=== PATIENT | female | born 1970 | race Caucasian/White ===

== ENCOUNTER 2021-08-23 08:53 | Outpatient (REF) | payer MEDICARE, MEDICAID, SELFPAY ==
[2021-08-23 09:20] LABS: Binax Internal Control QC Valid; Binax Now Covid-19 Ag Negative (Negative)
== END 2021-08-23 08:54 | disposition home or self-care (01) ==
LOC: HO.HMGCLDS 08:53
PROVIDERS: Visit Provider Internal Medicine
DX: Z20.822 Contact with and (suspected) exposure to COVID-19 (principal); J06.9 Acute upper respiratory infection, unspecified
CPT/HCPCS: 36415

== ENCOUNTER 2021-12-15 09:24 | Outpatient (REF) | payer MEDICARE, MEDICAID, SELFPAY ==
[2021-12-15 11:13] LABS: MANUAL DIFF FLAG NO
[2021-12-15 11:28] LABS: Basophils Percent Auto 0.4 % (0-2); Eosinophils Absolute Auto 0.3 X10*3/uL (0.0-0.4); Eosinophils Percent Auto 3.5 % (0-4); Hematocrit 48.2 % (37.0-47.0); Hemoglobin 15.9 g/dl (12.0-16.0); Imm Gran Abs Auto 0.04 X10*3/uL (0.00-0.03); Imm Gran Pct Auto 0.4 % (0.0-0.4); Lymphocytes Percent Auto 21.3 % (20-40); Mean Corpuscular Hemoglobin 28.8 pg (27.0-33.0); Mean Corpuscular Volume 87.2 fL (80.0-98.0); Mean Platelet Volume 9.7 fL (9.4-12.3); Monocytes Percent Auto 10.6 % (2-11); Neutrophils Percent Auto 63.8 % (45-73); Platelet Count 375 X10*3/uL (160-400); Red Blood Count 5.53 X10*6/uL (4.20-5.50); Red Cell Distribution Width 13.2 % (11.0-16.0); White Blood Count 9.4 X10*3/uL (4.8-10.8)
[2021-12-15 11:37] LABS: Alanine Aminotransferase 13 U/L (0-31); Albumin Level 4.1 g/dL (3.5-5.0); Alkaline Phosphatase 62 U/L (39-117); Anion Gap 13 (12-20); Aspartate Amino Transferase 11 U/L (5-31); Bilirubin Total 0.5 mg/dL (0.0-1.0); Blood Urea Nitrogen 15 mg/dL (9-16); Calcium 9.6 mg/dL (8.4-10.2); Carbon Dioxide 25 mmol/L (22-29); Chloride 104 mmol/L (96-108); Cholesterol 193 mg/dL; Estimated Glomerular Filt Rate > 60; Glucose Fasting 102 mg/dL (60-99); HDL Cholesterol 42 mg/dL; LDL Cholesterol Calculated 127 mg/dl; Potassium 4.9 mmol/L (3.3-5.1); Sodium 137 mmol/L (135-145); Triglycerides 123 mg/dL
[2021-12-15 12:01] LABS: TSH reflex Free T4 0.86 uIU/mL (0.32-4.0); Vitamin D 25-OH Total 31.1 ng/mL (>30)
[2021-12-15 12:11] LABS: Folate 11.5 ng/mL (> or = 4.0); Vitamin B12 617 pg/mL (200-900)
== END 2021-12-15 09:25 | disposition home or self-care (01) ==
LOC: HO.HMGCLDS 09:24
PROVIDERS: PCP Internal Medicine; Visit Provider Internal Medicine
DX: Z00.01 Encounter for general adult medical examination with abnormal findings (principal); F31.9 Bipolar disorder, unspecified; N95.9 Unspecified menopausal and perimenopausal disorder
CPT/HCPCS: 36415; 80053; 80061; 82306; 82607; 82746; 84443; 85025

== ENCOUNTER 2022-08-13 10:07 | Outpatient (REF) | payer MEDICARE, MEDICAID, SELFPAY ==
--- NOTE | ~2022-08-13 | XR_ITS ---
EXAMINATION: XR CHEST CLINICAL INFORMATION: Cough COMPARISON: None TECHNIQUE: 2 views of the chest were obtained. FINDINGS: No focal consolidation, pulmonary edema, or pleural effusion. Stable cardiomediastinal silhouette. XR/XR chest 2V IMPRESSION: No acute cardiopulmonary findings.
[2022-08-13 14:20] LABS: Influenza A PCR NEGATIVE (Negative); Influenza B PCR NEGATIVE (Negative); Resp Syncy Virus RNA Qual PCR NEGATIVE (Negative); SARS COV2 PCR INHOUSE NEGATIVE (Negative)
== END 2022-08-13 10:08 | disposition home or self-care (01) ==
LOC: HO.HMGCX 10:07
PROVIDERS: PCP Internal Medicine; Visit Provider Physician Assistant Medical
DX: Z20.822 Contact with and (suspected) exposure to COVID-19 (principal); R05.9 Cough, unspecified
CPT/HCPCS: 0241U; 71046

== ENCOUNTER 2022-08-30 07:55 | Outpatient (REF) | payer MEDICARE, MEDICAID, SELFPAY ==
--- NOTE | 2022-08-30 10:57 | PFT_ITS ---
Forced vital capacity is 87%, FEV1 of 67%, FEV1/FVC ratio is 61. [id number] of 32% and MVV is 63%. Post bronchodilator therapy, there is no significant improvement. Total lung capacity 108%. Residual volume 132%. Diffusion capacity 64%. CONCLUSION: Moderately severe obstructive airway disorder. No response to bronchodilator therapy noted. Clinical correlation recommended. MD MARISSA Pedro/MODL / [id number]
== END 2022-08-30 07:56 | disposition home or self-care (01) ==
LOC: HO.RESP 07:55
PROVIDERS: PCP Internal Medicine; Visit Provider Internal Medicine
DX: F17.210 Nicotine dependence, cigarettes, uncomplicated (principal); R05.8 Other specified cough
CPT/HCPCS: 94060; 94727; 94729

== ENCOUNTER 2022-09-01 09:07 | Outpatient (AMB) | payer MEDICARE, MEDICAID, SELFPAY ==
--- NOTE | 2022-09-01 09:10 | MHC.PC.OV ---
Vital Signs 09/01/22 09:12 Height 5 ft 4 in Weight 175 lb BMI 30.0 BP 120/76 Blood Pressure Location Rt brachial Position Standing Pulse 100 Pulse Source Pulse Oximeter Pulse Oximetry (%) 96 Oxygen Delivery Method Room Air Intake Visit Reasons: lung tightness after PFT Intake Note: pt states she had PFT on Monday and was given a albuterol treatment and was told she had a negative effect. Allergies amoxicillin Allergy (Severe, Verified 12/19/22 08:57) hives No Known Allergies Allergy (Verified 12/19/22 08:57) Medication List - Last Reconciled 09/01/22 by Jennyfer Jurado MD albuterol sulfate 90 mcg/actuation 1 inh inhalation QID PRN aripiprazole (Abilify) 15 mg PO DAILY hydroxyzine pamoate (Vistaril) 25 mg PO BID PRN lamotrigine 75 mg PO DAILY lorazepam 1 mg PO DAILY oxcarbazepine (Trileptal) 300 mg PO ONCE trazodone 50 mg PO DAILY PRN Tobacco use date assessed: 09/01/22 HPI lung tightness after PFT HPI Details 51-year-old lady with heavy cigarette use, here today complaining of tightness, and difficulty breathing, unable to get a good breath, with wheezing, which started after she had her pulmonary function test 2 days ago. She states that she had a hard time breathing after she received nebulizer treatment during her test. Has been using her Ventolin inhaler which he states has not been helping. . She continues to smoke at least 20 cigarettes a day, but is motivated to quit. Has tried taking Chantix but unable to tolerate it due to severe vivid dreams while taking it, has tried nicotine patches in the past but was still smoking while using it. She does have bipolar disorder, currently being followed by Psychiatry at [facility] in [place]. [facility] Medical History (Updated 12/19/22 @ 09:30 by Jennyfer Jurado MD) Chronic neck pain with normal neurological examination Chronic headaches Chronic right shoulder pain COVID-19 vaccine dose declined Pneumococcal vaccination declined Refused influenza vaccine Pain around toenail Mild intermittent asthma Cigarette smoker motivated to quit Heavy cigarette smoker (20-39 per day) Bipolar disorder Family History Brother Substance use disorder Brother Substance use disorder Social History Housing: Other Housing Other:: mobile home Alcohol intake: never Patient Tobacco Use Status: Current everyday Tobacco user Cigarette Packs Per Day: 1 Cigarettes Per Day: 20 e-Cigarette/Vaping Use: Never Used service: No Current occupational status: disabled Cognitive needs: No Hearing needs: No Vision needs: Yes Questionnaire PHQ-9 Over the last 2 weeks, how often have you been bothered by any of the following problems? 1. Little interest or pleasure in doing things: more than half the days 2. Feeling down, depressed, or hopeless: more than half the days 3. Trouble falling or staying asleep, or sleeping too much: several days 4. Feeling tired or having little energy: nearly every day 5. Poor appetite or overeating: more than half the days 6. Feeling bad about yourself - or that you are a failure or have let yourself or your family down: more than half the days 7. Trouble concentrating on things, such as reading the newspaper or watching television: nearly every day 8. Moving or speaking so slowly that other people could have noticed. Or the opposite - being so fidgety or restless that you have been moving around a lot more than usual: more than half the days 9. Thoughts that you would be better off or of hurting yourself in some way: several days Total score: 18 Depression Screening Interpretation: Positive (sees Dr Christopher Brewer in [place]) Depression Screening Follow-up: Existing condition and In treatment Source: Developed by Drs. Aj Bruce, Lina Andre, Jethro Chaidez and colleagues, with an educational samia from [employer]. Thrive Questionnaire Date Thrive assessed: 09/01/22 I am a: Patient What is your living situation today?: I have a steady place to live Within the past 12 months, did the food you bought not last and you didn't have the money to get more?: Never true Within the past 12 months, did you worry whether your food would run out before you got money to buy more?: Never true Do you have trouble paying for medicines?: No Do you have trouble getting transportation to medical appointments?: No Do you have trouble paying your heating and electricity bill?: No Do you have trouble taking care of your child, family member or friend?: No Do you have trouble with day-to-day activities such as bathing, preparing meals, shopping, managing finances, etc.?: No Are you currently unemployed and looking for a job?: No Are you interested in more education?: No AUDIT C Alcohol Use Questionnaire (AUDIT-C) 1. How often do you have a drink containing alcohol?: Never 3. How often do you have six or more drinks on one occasion?: Never Total Score: 0 THOR-7 AMB Questionnaire THOR-7 Date THOR - 7 assessed: 09/01/22 Feeling nervous, anxious, or on edge: 3 = Nearly every day Not being able to stop or control worryin = Nearly every day Worrying too much about different things: 3 = Nearly every day Trouble relaxin = Nearly every day Being so restless that it is hard to sit still: 2 = More than half the days Becoming easily annoyed or irritable: 2 = More than half the days Feeling afraid as if something awful might happen: 2 = More than half the days Total THOR-7 score (0-4 normal; 5-9 mild; 10-14 moderate; 15-21 severe): 18 Source: Developed by Drs. Aj Bruce, Lina Andre, Jethro Chaidez and colleagues, with an educational samia from [employer]. Review of Systems Const Reports as per HPI, Denies fatigue, Denies fever(s) and Denies headache(s) ENT Denies headache(s), Denies nasal congestion, Denies nasal discharge, Denies nose pain, Denies post nasal drip and Denies sinus pain Card Denies acrocyanosis, Denies chest pain, Denies syncope, Denies rapid heart rate, Denies irregular heart rhythm, Denies palpitations and Reports dyspnea Resp Denies chest congestion, Reports cough (Dry cough), Denies pain on inspiration, Reports dyspnea and Reports wheezing GI Denies abdominal pain, Denies change in bowel habits and Denies heartburn Musc Reports no additional complaints Neuro Denies syncope and Denies headache(s) Endo Denies fatigue and Denies palpitations Aller/Immun Reports wheezing Physical exam (Primary Care) Vital Signs: Last Vital Signs Pulse 100 01/19/23 09:12 BP 120/76 09/01/22 09:12 Pulse Ox 96 09/01/22 09:12 Oxygen Delivery Method Room Air 09/01/22 09:12 BMI result Body Mass Index 30.0 Tobacco/Smoking Status: Tobacco use Status Tobacco use date assessed 09/01/22 09/01/22 09:17 Patient Tobacco Use Status Current everyday Tobacco 09/01/22 09:17 e-Cigarette/Vaping Use Never Used 09/01/22 09:17 PHQ-9: PHQ-9 Score PHQ-9: Total score 18 09/01/22 09:56 Depression Screening Interpretation: Positive (sees Dr Christopher Brewer in [place]) Depression Screening Follow-up: Existing condition and In treatment Thrive Assessment: Date of Thrive Assessment Date Thrive assessed 09/01/22 09/01/22 09:18 Const General: comfortable, no acute distress and alert HENMT Ears: external ears normal, TM's normal bilaterally and EAC's normal General nose exam: Normal external nose present and No nasal discharge present Mouth: oropharynx normal and moist mucous membranes Neck Neck: Yes full ROM, Yes no lymphadenopathy and Yes supple Resp Other: Diffuse wheezing heard, with tight breath sounds, no rales Effort & Inspection: normal respiratory effort and able to speak in complete sentences Cardio Rate: regular rate Rhythm: regular rhythm Heart sounds: S1 normal heart sound present and S2 normal heart sound present Assessment and Plan Assessment & Plan (1) Bronchitis, acute, with bronchospasm: Code(s): J20.9 - Acute bronchitis, unspecified Plan: Prescription sent for prednisone, tapering dose, to take as directed. Strongly encouraged to quit smoking, not ready to quit at present time per patient (2) Bipolar disorder: Code(s): F31.9 - Bipolar disorder, unspecified Plan: Followed by psychiatry Medications: New prednisone Take 40 mg once a day with food or milk on days 1 and 2, 30 mg p.o. q.a.m. on days 3 and 4, 20 mg p.o. q.a.m. on days 5 and 6, and 10 mg p.o. q.a.m. on days 7 and 8 orally as directed 20 tabs 0RF Coding Level of Care Code Est Pt Level 3 (35307) Diagnoses Bronchitis, acute, with bronchospasm J20.9 Bipolar disorder F31.9
[2022-09-01 09:12] VITALS: BP 120/76; PULSE 100; O2SAT 96
== END 2022-09-01 16:51 | disposition home or self-care (01) ==
LOC: HO.HMGC 09:07
PROVIDERS: PCP Internal Medicine; Visit Provider Internal Medicine
DX: J20.9 Acute bronchitis, unspecified (principal); F31.9 Bipolar disorder, unspecified
CPT/HCPCS: 99213

== ENCOUNTER 2022-10-21 13:46 | Outpatient (REF) | payer MEDICARE, MEDICAID, SELFPAY ==
--- NOTE | 2022-10-21 17:04 | PFT_ITS ---
This is a methacholine challenge. INDICATION: Evaluation of hyperreactive airways and a diagnosis of asthma. FINDINGS: After the patient received 1 mg of methacholine, her FEV1 dropped by 26%. The patient then received albuterol via nebulizer, improving her FEV1 back to baseline. IMPRESSION: This is a positive methacholine challenge consistent with a diagnosis of hyperreactive airways and asthma is very likely. Clinical correlation warranted. MD MARY Guadarrama/SILVA / [id number]
== END 2022-10-21 13:47 | disposition home or self-care (01) ==
LOC: HO.RESP 13:46
PROVIDERS: PCP Internal Medicine; Visit Provider Internal Medicine
DX: R05.8 Other specified cough (principal); F17.210 Nicotine dependence, cigarettes, uncomplicated
CPT/HCPCS: 94070; J7674

== ENCOUNTER 2022-12-20 07:42 | Outpatient (REF) | payer MEDICARE, MEDICAID, SELFPAY ==
--- NOTE | ~2022-12-20 | XR_ITS ---
EXAMINATION: XR CERVICAL SPINE CLINICAL INFORMATION: Neck pain COMPARISON: Cervical spine CT from 2013 TECHNIQUE: 5 views of the cervical spine FINDINGS: Bone alignment is normal. No fracture or dislocation. Degenerative spondylosis from C2-C3 to C5-C6. Normal disc spaces. Right-sided neuroforaminal narrowing from bony osteophyte from C2-C3 to C4-C5. Evaluation of left-sided neural foraminal limited due to patient positioning. Prevertebral soft tissues are normal. XR/XR cervical spine 5V IMPRESSION: Degenerative changes.
--- NOTE | ~2022-12-20 | XR_ITS ---
EXAMINATION: XR SHOULDER, RIGHT CLINICAL INFORMATION: Pain COMPARISON: None available. TECHNIQUE: AP external rotation, Grashey, scapular Y, and axillary views of the right shoulder. FINDINGS: Bone alignment is normal. No fracture or dislocation. Normal glenohumeral joint. Mild arthritis at the acromioclavicular joint. Soft tissues are normal. XR/XR shoulder RT min 2V IMPRESSION: Mild arthritis at the acromioclavicular joint.
[2022-12-20 11:36] LABS: Basophils Absolute Auto 0.1 X10*3/uL (0.0-0.2); Basophils Percent Auto 0.5 % (0-2); Eosinophils Absolute Auto 0.4 X10*3/uL (0.0-0.4); Eosinophils Percent Auto 3.7 % (0-4); Hematocrit 47.9 % (37.0-47.0); Hemoglobin 15.7 g/dl (12.0-16.0); Imm Gran Abs Auto 0.03 X10*3/uL (0.00-0.03); Imm Gran Pct Auto 0.3 % (0.0-0.4); Lymphocytes Percent Auto 20.3 % (20-40); MANUAL DIFF FLAG SCAN; Mean Corpuscular HGB Conc 32.8 g/dl (31.0-35.0); Mean Corpuscular Hemoglobin 28.5 pg (27.0-33.0); Mean Corpuscular Volume 87.1 fL (80.0-98.0); Monocytes Absolute Auto 0.9 X10*3/uL (0.1-1.2); Monocytes Percent Auto 8.8 % (2-11); Neutrophils Absolute Auto 6.6 x10*3/uL (2.0-8.3); Neutrophils Percent Auto 66.4 % (45-73); PLT CLUMP 1; Red Cell Distribution Width 13.2 % (11.0-16.0); SCAN SMEAR FLAG 1
[2022-12-20 12:28] LABS: SLIDE REVIEW VERIFIED
[2022-12-20 13:00] LABS: Vitamin D 25-OH Total 33.4 ng/mL (>30)
[2022-12-20 13:01] LABS: Alanine Aminotransferase 21 U/L (0-31); Anion Gap 13 (12-20); Aspartate Amino Transferase 15 U/L (5-31); Blood Urea Nitrogen 15 mg/dL (9-16); Calcium 9.4 mg/dL (8.4-10.2); Carbon Dioxide 24 mmol/L (22-29); Chloride 109 mmol/L (96-108); Cholesterol 209 mg/dL; Estimated Glomerular Filt Rate > 60; Glucose Fasting 103 mg/dL (60-99); HDL Cholesterol 46 mg/dL; LDL Cholesterol Calculated 134 mg/dl; Potassium 4.9 mmol/L (3.3-5.1); Sodium 141 mmol/L (135-145); Triglycerides 145 mg/dL
== END 2022-12-20 07:43 | disposition home or self-care (01) ==
LOC: HO.HMGCX 07:42
PROVIDERS: PCP Internal Medicine; Visit Provider Internal Medicine
DX: Z00.01 Encounter for general adult medical examination with abnormal findings (principal); R51.9 Headache, unspecified; M54.2 Cervicalgia; M25.511 Pain in right shoulder; F31.9 Bipolar disorder, unspecified; G89.29 Other chronic pain; J45.20 Mild intermittent asthma, uncomplicated
CPT/HCPCS: 36415; 72050; 73030; 80048; 80061; 82306; 84450; 84460; 85025

== ENCOUNTER 2023-01-25 13:01 | Outpatient (REF) | payer MEDICARE, MEDICAID, SELFPAY ==
--- NOTE | ~2023-01-25 | MM_ITS ---
EXAMINATION: MM SCREENING DIGITAL BREAST TOMOSYNTHESIS, BILATERAL CLINICAL INFORMATION: Screening. Asymptomatic. Age 52. No prior mammography. No known family history breast cancer. The lifetime risk of breast cancer based on the Tyrer-Cuzick Model is 11%. COMPARISON: None (current study represents initial baseline exam). TECHNIQUE: Digital breast tomosynthesis is performed in both the craniocaudal and mediolateral oblique views along with computer-aided detection (CAD). Synthesized 2D images are generated from the tomosynthesis. FINDINGS: There are scattered areas of fibroglandular density (ACR BI-RADS breast composition Category b). There are no significant masses, abnormal calcifications, or other abnormalities. The axilla and skin contours are unremarkable. MM/MM tomosynthesis screening BI IMPRESSION: No mammographic evidence of malignancy. ASSESSMENT: BI-RADS 1: Negative RECOMMENDATION: Routine annual mammography screening. This patient's information was entered into a reminder system with a target due date for their next mammogram.
== END 2023-01-25 13:02 | disposition home or self-care (01) ==
LOC: HO.MAMMO 13:01
PROVIDERS: PCP Internal Medicine; Visit Provider Internal Medicine
DX: Z12.31 Encounter for screening mammogram for malignant neoplasm of breast (principal)
CPT/HCPCS: 77063; 77067

== ENCOUNTER 2023-06-28 14:13 | Outpatient (AMB) | payer MEDICARE, MEDICAID, SELFPAY ==
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
[2023-06-28 14:28] VITALS: BP 126/78; PULSE 91; RESP 16; O2SAT 98; BMI 31.3
== END 2023-06-28 15:12 | disposition home or self-care (01) ==
PROVIDERS: Visit Provider Psychiatry & Neurology Neurology
DX: R51.9 Headache, unspecified (principal); G89.29 Other chronic pain; R06.83 Snoring; G47.10 Hypersomnia, unspecified
CPT/HCPCS: 99204

== ENCOUNTER → 2023-06-28 14:13 | Outpatient (BNVA) | payer MEDICARE, MEDICAID, SELFPAY | PROVIDERS: Visit Provider Psychiatry & Neurology Neurology | DX: R51.9 Headache, unspecified (principal); G47.10 Hypersomnia, unspecified; R06.83 Snoring | CPT/HCPCS: 99202 ==

== ENCOUNTER 2023-07-20 11:48 | Outpatient (AMB) | payer MEDICARE, MEDICAID, SELFPAY ==
[2023-07-20 11:49] VITALS: BP 120/70; PULSE 83; TEMP 36.4; O2SAT 97; BMI 31.1
--- NOTE | 2023-07-20 11:49 | AM.OFFWIN_ITS ---
Intake Vital Signs 07/20/23 11:49 Height 5 ft 4 in Weight 181 lb BMI 31.1 BP 120/70 Blood Pressure Location Rt brachial Position Sitting Pulse 83 Pulse Source Pulse Oximeter Temp 97.6 F Temp Source Temporal Artery Scan Pulse Oximetry (%) 97 Oxygen Delivery Method Room Air Intake Visit Reasons: EP, body aches, cough ([phone]) Intake Note: pt is here today for body aches, cough started last Patient Tobacco Use Status: Current everyday Tobacco user Allergies amoxicillin Allergy (Severe, Verified 07/20/23 12:03) hives No Known Allergies Allergy (Verified 07/20/23 12:03) Do you need a note to return to daycare/school/sports/work: No HPI HPI Comments History of Present Illness Details This is a 52-year-old female with a past medical history of asthma and bipolar disorder as well as tobacco use daily presenting for evaluation of body aches patient, cough and subjective fevers that she has had over the past 1 week. Patient has been using her albuterol inhaler with increased frequency. Patient denies having any sick contacts and has not tested herself for COVID-19 at home. Patient has not received her influenza immunization. [facility] Medical History Snoring Hypersomnia Chronic neck pain with normal neurological examination Chronic headaches Chronic right shoulder pain COVID-19 vaccine dose declined Pneumococcal vaccination declined Refused influenza vaccine Pain around toenail Mild intermittent asthma Cigarette smoker motivated to quit Heavy cigarette smoker (20-39 per day) Bipolar disorder Surgical History Previous section Family History Brother Substance use disorder Brother Substance use disorder Father No problems noted. Mother HTN (hypertension) Social History Household Members: Spouse Housing: Other Housing Other:: mobile home Alcohol intake: never Patient Tobacco Use Status: Current everyday Tobacco user Cigarette Packs Per Day: 1 Cigarettes Per Day: 20 e-Cigarette/Vaping Use: Never Used service: No Current occupational status: disabled Cognitive needs: No Hearing needs: No Vision needs: Yes Review of Systems Const Denies chills, Reports fatigue, Reports fever(s) (Subjective) and Denies night sweats Eyes Reports as per HPI ENT Reports no additional complaints, Reports nasal congestion, Denies sinus pain and Reports sinus pressure Card Reports no additional complaints Skin/Breast Reports system reviewed and no additional complaints, except as documented Endo Reports fatigue Physical Exam Vital Signs: Last Vital Signs Temp 97.6 F 07/20/23 11:49 Pulse 83 07/20/23 11:49 BP 120/70 07/20/23 11:49 Pulse Ox 97 07/20/23 11:49 Oxygen Delivery Method Room Air 07/20/23 11:49 BMI result Body Mass Index 31.1 Pt is afebrile. Const General: cooperative, healthy appearing, comfortable and no acute distress Nutritional Appearance: average body habitus Orientation/consciousness: patient oriented x3 Limitations: no limitations HEENT Head: Yes normal to inspection and Yes normocephalic Ears: hearing grossly normal bilaterally, external ears normal, TM's normal bilaterally and EAC's normal General nose exam: Normal external nose present Face and sinus: Yes normal facial exam and No sinus tenderness Mouth: Normal oral and palatal mucosa present and moist mucous membranes Teeth and gingiva: dentition normal Throat: Yes posterior oropharynx normal Resp Effort & Inspection: normal respiratory effort, able to speak in complete sentences, audible wheezes, Actively coughing, respiratory effort not decreased, no nasal flaring, no respiratory distress and no tripod positioning Auscultation: wheezes lower bilaterally Cardio Rate: regular rate Rhythm: regular rhythm Skin General skin exam: no rashes or lesions noted Neuro General: patient oriented x3 Psych Appearance: grossly normal Mental Status: mental status grossly normal Insight: Good insight present (Psych) Judgement: Good judgement present (Psych) Results AMB Rapid Strep AMB Rapid Strep Negative Last Edit by Jessica Potter CMA on 07/20/23 12:11 Results Reviewed Results Reviewed: Laboratory Last Values Strep Scn [facility] Negative 07/20/23 12:10 Negative strep reviewed with patient. Assessment & Plan Assessment & Plan (1) Asthma: Code(s): J45.909 - Unspecified asthma, uncomplicated Plan: SARS panel pending; patient discharged with a prednisone burst. Orders: Orders AMB Rapid Strep Screen 07/20/23 Z13.9 - Encounter for screening, unspecified Yessy Ash MESHA SARS-CoV2/FLU/RSV 07/20/23 J45.909 - Unspecified asthma, uncomplicated Nohemi Marcano PA-C Medications: New prednisone 40 mg (2 x 20 mg) PO DAILY 10 tabs 0RF Nohemi Marcano PA-C Coding Level of Care Code Est Pt Level 3 (20566) Diagnoses Asthma J45.909 Time Spent (min) 25
== END 2023-07-20 13:59 | disposition home or self-care (01) ==
PROVIDERS: PCP Internal Medicine; Visit Provider Physician Assistant
DX: J45.909 Unspecified asthma, uncomplicated (principal)
CPT/HCPCS: 87880; 99213

== ENCOUNTER 2023-07-20 16:15 | Outpatient (REF) | payer MEDICARE, MEDICAID, SELFPAY ==
[2023-07-20 17:28] LABS: Influenza A PCR NEGATIVE (Negative); Influenza B PCR NEGATIVE (Negative); Resp Syncy Virus RNA Qual PCR NEGATIVE (Negative); SARS COV2 PCR INHOUSE POSITIVE (Negative)
== END 2023-07-20 16:16 | disposition home or self-care (01) ==
LOC: HO.LNP 16:15
PROVIDERS: Visit Provider Physician Assistant
DX: J45.909 Unspecified asthma, uncomplicated (principal); Z20.822 Contact with and (suspected) exposure to COVID-19
CPT/HCPCS: 0241U

== ENCOUNTER → 2023-08-15 09:07 | Outpatient (REF) | payer MEDICARE, MEDICAID, SELFPAY | LOC: HO.SL 09:07 | PROVIDERS: PCP Internal Medicine; Visit Provider Psychiatry & Neurology Neurology | DX: G47.10 Hypersomnia, unspecified (principal); G89.29 Other chronic pain; R51.9 Headache, unspecified; R06.83 Snoring | CPT/HCPCS: 95806 ==

== ENCOUNTER → 2023-08-15 09:21 | Outpatient (BNV) | payer MEDICARE, MEDICAID, SELFPAY | PROVIDERS: PCP Internal Medicine; Visit Provider Psychiatry & Neurology Neurology | DX: R06.83 Snoring (principal); G47.10 Hypersomnia, unspecified | CPT/HCPCS: 95806 ==

== ENCOUNTER 2023-09-18 10:29 | Outpatient (AMB) | payer MEDICARE, MEDICAID, SELFPAY ==
--- NOTE | 2023-09-18 10:50 | MHC.PC.OV ---
Vital Signs 09/18/23 10:51 Height 5 ft 4 in Weight 186 lb BMI 31.9 BP 126/80 Blood Pressure Location Lt brachial Position Sitting Pulse 94 Pulse Source Pulse Oximeter Pulse Oximetry (%) 94 Oxygen Delivery Method Room Air Intake Visit Reasons: cough Intake Note: Pt is here today c/o chest discomfort and SOB Allergies amoxicillin Allergy (Severe, Verified 09/18/23 11:11) hives No Known Allergies Allergy (Verified 09/18/23 11:11) Medication List - Last Reconciled 09/18/23 by Jennyfer Jurado MD albuterol sulfate 90 mcg/actuation 1 inh inhalation QID PRN aripiprazole (Abilify) 15 mg PO DAILY Dulera 200-5 mcg/actuation (mometasone-formoterol) 2 puffs inhalation Q12H NS inhalational spacing device (BreatheRite MDI Spacer) As directed lamotrigine 50 mg PO DAILY lorazepam 0.5 mg PO BID oxcarbazepine (Trileptal) 300 mg PO ONCE Tobacco use date assessed: 09/18/23 Dental Screening Dental Screen Date: 09/18/23 Did you have a dental visit in the last 12 months?: Yes Did you have a dental problem in the last 6 months where you did not have access to dental care?: Yes Was dental information given to patient?: Patient has dentist HPI HPI Comments History of Present Illness Details 52-year-old lady with mild intermittent asthma, here today complaining of intermittent episodes of wheezing and shortness of breath especially on exertion. This has been present for the last several days. No accompanying fever or chills or chest pain reported. She has been using her Dulera and albuterol rescue inhaler which has not been helping much. She also complains of intermittent episodes of epigastric fullness, where sensation of food not completely going down after eating and occasional epigastric pain usually related to food intake. Denies any blood in stool, no bloating, no dysphagia or vomiting reported. [facility] Medical History (Updated 09/18/23 @ 11:25 by Jennyfer Jurado MD) Asthma with acute exacerbation Epigastric fullness Epigastric pain Snoring Hypersomnia Chronic neck pain with normal neurological examination Chronic headaches Chronic right shoulder pain COVID-19 vaccine dose declined Pneumococcal vaccination declined Refused influenza vaccine Pain around toenail Mild intermittent asthma Cigarette smoker motivated to quit Heavy cigarette smoker (20-39 per day) Bipolar disorder Surgical History Previous section Family History Brother Substance use disorder Brother Substance use disorder Father No problems noted. Mother HTN (hypertension) Social History Household Members: Spouse Housing: Other Housing Other:: mobile home Alcohol intake: never Patient Tobacco Use Status: Current everyday Tobacco user Cigarette Packs Per Day: 1 Cigarettes Per Day: 20 e-Cigarette/Vaping Use: Never Used service: No Current occupational status: disabled Cognitive needs: No Hearing needs: No Vision needs: Yes Questionnaire PHQ-9 Over the last 2 weeks, how often have you been bothered by any of the following problems? 1. Little interest or pleasure in doing things: not at all 2. Feeling down, depressed, or hopeless: not at all 3. Trouble falling or staying asleep, or sleeping too much: not at all 4. Feeling tired or having little energy: not at all 5. Poor appetite or overeating: not at all 6. Feeling bad about yourself - or that you are a failure or have let yourself or your family down: not at all 7. Trouble concentrating on things, such as reading the newspaper or watching television: not at all 8. Moving or speaking so slowly that other people could have noticed. Or the opposite - being so fidgety or restless that you have been moving around a lot more than usual: not at all 9. Thoughts that you would be better off or of hurting yourself in some way: not at all Total score: 0 Depression Screening Interpretation: Negative Depression Screening Done: Yes 66670 - PHQ-9 Billing: Yes Source: Developed by Drs. Aj Bruce, Lina Andre, Jethro Chaidez and colleagues, with an educational samia from [employer]. Thrive Questionnaire Date Thrive assessed: 09/18/23 I am a: Patient What is your living situation today?: I have a steady place to live Within the past 12 months, did the food you bought not last and you didn't have the money to get more?: Never true Within the past 12 months, did you worry whether your food would run out before you got money to buy more?: Never true Do you have trouble paying for medicines?: No Do you have trouble getting transportation to medical appointments?: No Do you have trouble paying your heating and electricity bill?: No Do you have trouble taking care of your child, family member or friend?: No Do you have trouble with day-to-day activities such as bathing, preparing meals, shopping, managing finances, etc.?: No Are you currently unemployed and looking for a job?: No Are you interested in more education?: Yes THRIVE Score: 0 AUDIT C Alcohol Use Questionnaire (AUDIT-C) 1. How often do you have a drink containing alcohol?: Never Total Score: 0 THOR-7 AMB Questionnaire THOR-7 Date THOR - 7 assessed: 09/18/23 Feeling nervous, anxious, or on edge: 0 = Not at all Not being able to stop or control worryin = Not at all Worrying too much about different things: 0 = Not at all Trouble relaxin = Not at all Being so restless that it is hard to sit still: 0 = Not at all Becoming easily annoyed or irritable: 0 = Not at all Feeling afraid as if something awful might happen: 0 = Not at all Total THOR-7 score (0-4 normal; 5-9 mild; 10-14 moderate; 15-21 severe): 0 Source: Developed by Drs. Aj Bruce, Lina Andre, Jethro Chaidez and colleagues, with an educational samia from [employer]. THOR-7 Assessment Billing THOR-7 Assessment Tool: THOR-7 Assessment 28249 ACT Questionnaire In the past 4 weeks, how much of the time did your asthma keep you from getting as much done at work, school or at home?: Some of the time During the past 4 weeks, how often have you had shortness of breath?: 3-6 times a week During the past 4 weeks, how often did your asthma symptoms wake you up at night or earlier than usual in the morning?: Not at all During the past 4 weeks, how often have you had to use your rescue inhaler or nebulizer medication?: 2-3 times a week How would you rate your asthma control during the past 4 weeks?: Somewhat controlled Score: 17 Review of Systems Const Denies chills, Reports fatigue, Denies fever(s) and Denies poor appetite ENT Denies ear discharge, Denies hoarseness, Denies nasal congestion and Denies nasal discharge Card Reports no additional complaints Resp Reports as per HPI and Reports no additional complaints GI Reports no additional complaints, Denies melena, Denies hematochezia and Denies change in bowel habits Musc Reports no additional complaints Endo Reports fatigue Physical exam (Primary Care) Vital Signs: Last Vital Signs Pulse 94 09/18/23 10:51 BP 126/80 09/18/23 10:51 Pulse Ox 94 09/18/23 10:51 Oxygen Delivery Method Room Air 09/18/23 10:51 BMI result Body Mass Index 31.9 Tobacco/Smoking Status: Tobacco use Status Tobacco use date assessed 09/18/23 09/18/23 10:58 Patient Tobacco Use Status Current everyday Tobacco 09/18/23 10:51 e-Cigarette/Vaping Use Never Used 09/18/23 10:51 PHQ-9: PHQ-9 Score PHQ-9: Total score 0 09/18/23 11:16 Depression Screening Interpretation: Negative Thrive Assessment: Date of Thrive Assessment Date Thrive assessed 09/18/23 09/18/23 11:13 Const Other: Alert oriented x3, no acute distress noted HENMT Ears: external ears normal General nose exam: Normal external nose present and No nasal discharge present Face and sinus: Yes sinuses nontender and Yes face symmetric Mouth: Normal oral and palatal mucosa present, oropharynx normal and moist mucous membranes Neck Other: Supple with no lymphadenopathy palpated, thyroid gland nonpalpable Resp Auscultation: wheezes scattered wheezes and throughout Cardio Other: S1-S2 present regular rate and rhythm GI Palpation (GI): Soft to palpation, nontender, no guarding and no masses Assessment and Plan Assessment & Plan (1) Epigastric fullness: Code(s): R19.06 - Epigastric swelling, mass or lump Plan: Order an upper GI series (2) Epigastric pain: Code(s): R10.13 - Epigastric pain Plan: Upper GI series ordered, empirically started on pantoprazole 40 mg per capsule to take once a day in a.m. an hour before breakfast, avoidance of triggers for heartburn which includes acidic foods, fried , grilled foods (3) Asthma with acute exacerbation: Code(s): J45.901 - Unspecified asthma with (acute) exacerbation Qualifiers: Asthma persistence: intermittent Asthma severity: mild Qualified Code(s): J45.21 - Mild intermittent asthma with (acute) exacerbation Plan: Prescription for tapering dose of prednisone given, with instructions given to patient on how to take medication. Advised to take it always in the morning with food or milk. Once finished taking the prescription, resume use of Dulera. Return to clinic if no improvement of symptoms Orders: Orders FL upper GI series 09/18/23 R10.13 - Epigastric pain, R19.06 - Epigastric swelling, mass or lump Medications: New pantoprazole 40 mg PO DAILY 30 tabs 1RF prednisone see taper instructions, take 40 mg or 4 tablets on days 1 and 2; 30 mg or 3 tablets on day 3 and 4; take 20 mg or 2 tablets on days 5 and 6; , and 10 mg or 1 tablet on days 7 and 8 . Take this always with a full meal in a.m. 10 mg PO DIRECTED 20 tabs 0RF Coding Level of Care Code Est Pt Level 3 (30505) Diagnoses Epigastric fullness R19.06 Epigastric pain R10.13 Mild intermittent asthma with acute exacerbation J45.21 Asthma persistence: intermittent Asthma severity: mild Additional Codes THOR-7 Assessment Billing - THOR-7 Assessment Tool: THOR-7 Assessment 74952 ([id number])
[2023-09-18 10:51] VITALS: BP 126/80; PULSE 94; O2SAT 94; BMI 31.9
== END 2023-09-18 11:22 | disposition home or self-care (01) ==
PROVIDERS: PCP Internal Medicine; Visit Provider Internal Medicine
DX: R19.06 Epigastric swelling, mass or lump (principal); R10.13 Epigastric pain; J45.21 Mild intermittent asthma with (acute) exacerbation
CPT/HCPCS: 99213

== ENCOUNTER 2023-11-06 09:27 | Outpatient (AMB) | payer MEDICARE, MEDICAID, SELFPAY ==
--- NOTE | 2023-11-06 09:33 | A.OFFPC_ITS ---
<Statement entered by Jennyfer Jurado MD - 01/14/25 10:37> This note has been administratively?closed. Vital Signs 11/06/23 09:54 Height 5 ft 4 in Weight 184 lb BMI 31.6 BP 124/94 H Blood Pressure Location Lt brachial Position Sitting Pulse 99 Pulse Source Pulse Oximeter Pulse Oximetry (%) 95 Oxygen Delivery Method Room Air Intake Visit Reasons: Elevated blood pressure Intake Note: Pt is here today to discuss elevated blood pressure Allergies amoxicillin Allergy (Severe, Verified 12/13/24 14:45) hives clindamycin Allergy (Mild, Verified 12/13/24 14:45) Rash Medication List - Last Reconciled 11/08/23 by Jennyfer Jurado MD albuterol sulfate 90 mcg/actuation 1 inh inhalation QID PRN aripiprazole (Abilify) 15 mg PO DAILY Dulera 200-5 mcg/actuation (mometasone-formoterol) 2 puffs inhalation Q12H NS inhalational spacing device (BreatheRite MDI Spacer) As directed lamotrigine 50 mg PO DAILY lorazepam 0.5 mg PO BID oxcarbazepine (Trileptal) 300 mg PO ONCE Tobacco use date assessed: 11/06/23 Dental Screening Dental Screen Date: 11/06/23 Did you have a dental visit in the last 12 months?: Yes Did you have a dental problem in the last 6 months where you did not have access to dental care?: No Was dental information given to patient?: Patient has dentist [facility] Medical History (Updated 10/04/24 @ 08:50 by Marilyn Swenson PA-C) Chest pain Smoker Asthma-COPD overlap syndrome Asthma, persistent not controlled Smoker unmotivated to quit Hypersomnia COVID-19 vaccine dose declined Pneumococcal vaccination declined Refused influenza vaccine Heavy cigarette smoker (20-39 per day) Bipolar disorder Surgical History Previous section Family History Brother Substance use disorder Brother Substance use disorder Father No problems noted. Mother HTN (hypertension) Social History Household Members: Spouse Housing: Other Housing Other:: mobile home Alcohol intake: never Patient Tobacco Use Status: Current everyday Tobacco user Cigarette Packs Per Day: 0.75 Cigarettes Per Day: 15 e-Cigarette/Vaping Use: Never Used service: No Current occupational status: disabled Cognitive needs: No Hearing needs: No Vision needs: Yes Questionnaire Thrive Questionnaire Date Thrive assessed: 09/18/23 THOR-7 AMB Questionnaire THOR-7 Date THOR - 7 assessed: 09/18/23 Source: Developed by Drs. Aj Bruce, Lina Andre, Jethro Chaidez and colleagues, with an educational samia from [employer]. Physical exam (Primary Care) Vital Signs: Last Vital Signs Pulse 99 11/06/23 09:54 BP 124/94 H 11/06/23 09:54 Pulse Ox 95 11/06/23 09:54 Oxygen Delivery Method Room Air 11/06/23 09:54 BMI result Body Mass Index 31.6 Tobacco/Smoking Status: Tobacco use Status Tobacco use date assessed 11/06/23 11/06/23 09:57 Patient Tobacco Use Status Current everyday Tobacco 11/06/23 09:34 e-Cigarette/Vaping Use Never Used 11/06/23 09:34 Thrive Assessment: Date of Thrive Assessment Date Thrive assessed 09/18/23 11/06/23 09:34 Coding Level of Care Code Admin Sign Off/No Billing Diagnoses Labile blood pressure R09.89 Smoker unmotivated to quit F17.200
[2023-11-06 09:54] VITALS: BP 124/94; PULSE 99; O2SAT 95; BMI 31.6
== END 2023-11-06 14:37 | disposition home or self-care (01) ==
PROVIDERS: PCP Internal Medicine; Visit Provider Internal Medicine
DX: R09.89 Other specified symptoms and signs involving the circulatory and respiratory systems (principal); F17.200 Nicotine dependence, unspecified, uncomplicated
CPT/HCPCS: 99499

== ENCOUNTER 2023-11-15 11:42 | Outpatient (AMB) | payer MEDICARE, MEDICAID, SELFPAY ==
[2023-11-15 11:43] VITALS: BP 130/82; PULSE 95; O2SAT 94; BMI 32.4
--- NOTE | 2023-11-15 11:43 | HO.NEPHOV_ITS ---
HPI HPI Comments History of Present Illness Details I had the privilege of seeing Dori in consultation for labile blood pressure. 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 She is closely monitored and managed by her primary care physician. She is gained some weight. She had COVID infection in July of 2023. Ever since her blood pressure had been fluctuant. She is not very strict with low-sodium diet. She has been having intermittent headaches. Recently she had some chest pain associated with her COVID infection as well as pulmonary issues which were resolved with a short course of prednisone. She has no history of uncontrolled thyroid disorders, low potassium, high calcium or documented sleep apnea. She has normal renal function. She denies any chest pain, shortness of breath, paroxysmal nocturnal dyspnea, orthopnea, pedal edema, hematuria or orthostatic symptoms. She does not have any palpitation, flushing or diarrhea. She does not take excessive nonsteroidal anti-inflammatories. She has no history of cocaine use. [facility] Medical History (Updated 11/06/23 @ 10:44 by Jennyfer Jurado MD) Smoker unmotivated to quit Labile blood pressure Asthma with acute exacerbation Epigastric fullness Epigastric pain Snoring Hypersomnia Chronic neck pain with normal neurological examination Chronic headaches Chronic right shoulder pain COVID-19 vaccine dose declined Pneumococcal vaccination declined Refused influenza vaccine Pain around toenail Mild intermittent asthma Cigarette smoker motivated to quit Heavy cigarette smoker (20-39 per day) Bipolar disorder Surgical History Previous section Family History Brother Substance use disorder Brother Substance use disorder Father No problems noted. Mother HTN (hypertension) Social History Household Members: Spouse Housing: Other Housing Other:: mobile home Alcohol intake: never Patient Tobacco Use Status: Current everyday Tobacco user Cigarette Packs Per Day: 1 Cigarettes Per Day: 20 e-Cigarette/Vaping Use: Never Used service: No Current occupational status: disabled Cognitive needs: No Hearing needs: No Vision needs: Yes Vital Signs 11/15/23 11:43 Height 5 ft 4 in Weight 188 lb 8 oz BMI 32.4 BP 130/82 Blood Pressure Location Rt brachial Position Sitting Pulse 95 Pulse Source Pulse Oximeter Pulse Oximetry (%) 94 Oxygen Delivery Method Room Air Physical Exam Vital Signs: Last Vital Signs Pulse 95 11/15/23 11:43 BP 130/82 11/15/23 11:43 Pulse Ox 94 11/15/23 11:43 Oxygen Delivery Method Room Air 11/15/23 11:43 BMI result Body Mass Index 32.4 Const General: comfortable and no acute distress Orientation/consciousness: patient oriented x3 HEENT Head: Yes normocephalic Mouth: Normal oral and palatal mucosa present Eyes EOM: EOMs intact bilaterally Neck Neck: Yes supple Resp Auscultation: clear to auscultation bilaterally Cardio Jugular venous distension: no JVD Rate: regular rate GI Palpation (GI): Soft to palpation Auscultation: normal bowel sounds General: Yes no CVA tenderness Back/Spine/Pelvis Back: no CVA tenderness Skin General skin exam: no rashes or lesions noted Neuro General: patient oriented x3 and moves all extremities Extrem General: Yes no pedal edema Assessment & Plan Assessment & Plan (1) Labile blood pressure: Code(s): R09.89 - Other specified symptoms and signs involving the circulatory and respiratory systems Plan Dori has labile blood pressure. I put her on 24 hour ambulatory blood pressure today. If her blood pressure is found to be high I plan to do Doppler of her renal arteries. Her serum potassium and renal functions are normal. She needs to lose weight and be on a low-sodium diet. If her blood pressure is found to be high it is worth considering doing a sleep study. I shall initiate her on medications once I see the blood pressure monitor data. She has no proteinuria, retinopathy, LVH or renal dysfunction. I did not initiate her on any medications today. More than 50% time spent discussing about hypertension, etiologies, investigations and management strategies. I answered all questions. Follow-up appointment given. Orders: Orders AMB 24 Hour Blood Pressure Monitor PLACEMENT Today R09.89 - Other specified symptoms and signs involving the circulatory and respiratory systems Coding Level of Care Code New Pt Level 4 (87277) Diagnoses Labile blood pressure R09.89 Results Reviewed Nephrology Results: No Data to Display
== END 2023-11-15 12:25 | disposition home or self-care (01) ==
LOC: HO.HKA 11:42
PROVIDERS: PCP Internal Medicine; Visit Provider Internal Medicine Nephrology
DX: R09.89 Other specified symptoms and signs involving the circulatory and respiratory systems (principal)
CPT/HCPCS: 99204

== ENCOUNTER → 2023-11-15 11:42 | Outpatient (BNVA) | payer MEDICARE, MEDICAID, SELFPAY | PROVIDERS: PCP Internal Medicine; Visit Provider Internal Medicine Nephrology | DX: R09.89 Other specified symptoms and signs involving the circulatory and respiratory systems (principal) | CPT/HCPCS: 99202 ==

== ENCOUNTER → 2023-11-16 23:59 | Outpatient (BNV) | payer MEDICARE, MEDICAID, SELFPAY ==
--- NOTE | 2023-11-16 14:48 | HO.NEPHOV_ITS ---
[facility] Medical History (Updated 11/06/23 @ 10:44 by Jennyfer Jurado MD) Smoker unmotivated to quit Labile blood pressure Asthma with acute exacerbation Epigastric fullness Epigastric pain Snoring Hypersomnia Chronic neck pain with normal neurological examination Chronic headaches Chronic right shoulder pain COVID-19 vaccine dose declined Pneumococcal vaccination declined Refused influenza vaccine Pain around toenail Mild intermittent asthma Cigarette smoker motivated to quit Heavy cigarette smoker (20-39 per day) Bipolar disorder Surgical History Previous section Family History Brother Substance use disorder Brother Substance use disorder Father No problems noted. Mother HTN (hypertension) Social History Household Members: Spouse Housing: Other Housing Other:: mobile home Alcohol intake: never Patient Tobacco Use Status: Current everyday Tobacco user Cigarette Packs Per Day: 1 Cigarettes Per Day: 20 e-Cigarette/Vaping Use: Never Used service: No Current occupational status: disabled Cognitive needs: No Hearing needs: No Vision needs: Yes Office Procedures 24 B/P Monitor Interpretation Details: Her 24 hour BP average is 134/83 Her Day time average BP is 134/83 Her night time average BP is 137/84 No nocturnal dipping Minimal white coat effect Needs sleep study Shall initiate medications CPT: 76418 24 Hour Blood Pressure Monitor Reading Procedure code (CPT) selection complete 24 Hour B/P Monitor Placement Her 24 hour BP average is 134/83 Her Day time average BP is 134/83 Her night time average BP is 137/84 No nocturnal dipping Minimal white coat effect Needs sleep study Shall initiate medications Assessment & Plan Assessment & Plan (1) Labile blood pressure: Code(s): R09.89 - Other specified symptoms and signs involving the circulatory and respiratory systems Plan: Patient coming to office tomorrow to discuss the 24 hour blood pressure monitor results. I will be initiating her on medications. She will be asked to discuss regarding sleep study with her primary care physician. Coding Level of Care Code Procedure Only Diagnoses Labile blood pressure R09.89 CPT Codes - CPT: 80470 24 Hour Blood Pressure Monitor Reading ([id number]) Results Reviewed Nephrology Results: No Data to Display
== END ==
PROVIDERS: PCP Internal Medicine; Visit Provider Internal Medicine Nephrology
DX: R03.0 Elevated blood-pressure reading, without diagnosis of hypertension (principal)
CPT/HCPCS: 93786; 93790

== ENCOUNTER 2023-11-17 11:36 | Outpatient (AMB) | payer MEDICARE, MEDICAID, SELFPAY ==
[2023-11-17 11:40] VITALS: BP 118/98; PULSE 105; O2SAT 94; BMI 32.3
--- NOTE | 2023-11-17 11:40 | HO.NEPHOV_ITS ---
HPI HPI Comments History of Present Illness Details I had the privilege of seeing Dori in consultation for labile blood pressure. 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 She is closely monitored and managed by her primary care physician. She is gained some weight. She had COVID infection in July of 2023. Ever since her blood pressure had been fluctuant. She is not very strict with low-sodium diet. She has been having intermittent headaches. Recently she had some chest pain associated with her COVID infection as well as pulmonary issues which were resolved with a short course of prednisone. She has no history of uncontrolled thyroid disorders, low potassium, high calcium or documented sleep apnea. She has normal renal function. She denies any chest pain, shortness of breath, paroxysmal nocturnal dyspnea, orthopnea, pedal edema, hematuria or orthostatic symptoms. She does not have any palpitation, flushing or diarrhea. She does not take excessive nonsteroidal anti-inflammatories. She has no history of cocaine use. She had a 24 hour BPM which showed sub optimal control of BP without any nocturnal dipping. [facility] Medical History (Updated 11/06/23 @ 10:44 by Jennyfer Jurado MD) Smoker unmotivated to quit Labile blood pressure Asthma with acute exacerbation Epigastric fullness Epigastric pain Snoring Hypersomnia Chronic neck pain with normal neurological examination Chronic headaches Chronic right shoulder pain COVID-19 vaccine dose declined Pneumococcal vaccination declined Refused influenza vaccine Pain around toenail Mild intermittent asthma Cigarette smoker motivated to quit Heavy cigarette smoker (20-39 per day) Bipolar disorder Surgical History Previous section Family History Brother Substance use disorder Brother Substance use disorder Father No problems noted. Mother HTN (hypertension) Social History Household Members: Spouse Housing: Other Housing Other:: mobile home Alcohol intake: never Patient Tobacco Use Status: Current everyday Tobacco user Cigarette Packs Per Day: 1 Cigarettes Per Day: 20 e-Cigarette/Vaping Use: Never Used service: No Current occupational status: disabled Cognitive needs: No Hearing needs: No Vision needs: Yes Vital Signs 11/17/23 11:40 Height 5 ft 4 in Weight 188 lb BMI 32.3 BP 118/98 H Blood Pressure Location Rt brachial Position Sitting Pulse 105 H Pulse Source Pulse Oximeter Pulse Oximetry (%) 94 Oxygen Delivery Method Room Air Physical Exam Vital Signs: Last Vital Signs Pulse 105 H 11/17/23 11:40 BP 118/98 H 11/17/23 11:40 Pulse Ox 94 11/17/23 11:40 Oxygen Delivery Method Room Air 11/17/23 11:40 BMI result Body Mass Index 32.3 Const General: comfortable and no acute distress Orientation/consciousness: patient oriented x3 HEENT Head: Yes normocephalic Mouth: Normal oral and palatal mucosa present Eyes EOM: EOMs intact bilaterally Neck Neck: Yes supple Resp Auscultation: clear to auscultation bilaterally Cardio Jugular venous distension: no JVD Rate: regular rate GI Palpation (GI): Soft to palpation Auscultation: normal bowel sounds General: Yes no CVA tenderness Back/Spine/Pelvis Back: no CVA tenderness Skin General skin exam: no rashes or lesions noted Neuro General: patient oriented x3 and moves all extremities Extrem General: Yes no pedal edema Assessment & Plan Assessment & Plan (1) Labile blood pressure: Code(s): R09.89 - Other specified symptoms and signs involving the circulatory and respiratory systems Plan Dori has labile blood pressure. 24 hour ambulatory blood pressure showed sub optimally controlled BP. I started her on Amlodipine 2.5 mg daily. Her serum potassium and renal functions are normal. She needs to lose weight and be on a low-sodium diet. She claimed that she had sleep study. She has no proteinuria, retinopathy, LVH or renal dysfunction. I answered all questions. Follow-up appointment given Medications: New amlodipine 2.5 mg PO DAILY 90 days 90 tabs 3RF Coding Level of Care Code Est Pt Level 4 (83537) Diagnoses Labile blood pressure R09.89 Results Reviewed Nephrology Results: No Data to Display
== END 2023-11-17 11:58 | disposition home or self-care (01) ==
PROVIDERS: PCP Internal Medicine; Visit Provider Internal Medicine Nephrology
DX: R09.89 Other specified symptoms and signs involving the circulatory and respiratory systems (principal)
CPT/HCPCS: 99214

== ENCOUNTER → 2023-11-17 11:36 | Outpatient (BNVA) | payer MEDICARE, MEDICAID, SELFPAY | PROVIDERS: PCP Internal Medicine; Visit Provider Internal Medicine Nephrology | DX: R09.89 Other specified symptoms and signs involving the circulatory and respiratory systems (principal) | CPT/HCPCS: 99212 ==

== ENCOUNTER 2023-12-25 09:14 | Outpatient (AMB) | payer MEDICARE, MEDICAID, SELFPAY ==
--- NOTE | 2023-12-25 09:36 | MHC.PC.OV ---
Vital Signs 12/25/23 09:37 Height 5 ft 4 in Weight 188 lb BMI 32.3 BP 128/88 Blood Pressure Location Rt brachial Position Sitting Pulse 90 Pulse Source Pulse Oximeter Pulse Oximetry (%) 95 Oxygen Delivery Method Room Air Intake Visit Reasons: elevated b/p, wheezing Intake Note: Pt is here today c/o elevated b/p and wheezing Allergies amoxicillin Allergy (Severe, Verified 12/25/23 10:12) hives No Known Allergies Allergy (Verified 12/25/23 10:12) Medication List - Last Reconciled 12/25/23 by Jennyfer Jurado MD albuterol sulfate 90 mcg/actuation 1 inh inhalation QID PRN amlodipine 5 mg PO DAILY 90 days aripiprazole 10 mg PO DAILY Dulera 200-5 mcg/actuation (mometasone-formoterol) 2 puffs inhalation Q12H NS inhalational spacing device (BreatheRite MDI Spacer) As directed lamotrigine 50 mg PO DAILY lorazepam 1 mg PO DAILY oxcarbazepine (Trileptal) 600 mg PO DAILY trazodone 100 mg PO BEDTIME PRN Tobacco use date assessed: 12/25/23 Dental Screening Dental Screen Date: 12/25/23 Did you have a dental visit in the last 12 months?: Yes Did you have a dental problem in the last 6 months where you did not have access to dental care?: Yes Was dental information given to patient?: Patient has dentist HPI elevated b/p, wheezing HPI Details 53-year-old lady here today complaining productive cough accompanied by wheezing and shortness of breath on exertion which has been present now for more than a week. She has been taking Dulera as directed and has been using her albuterol inhaler more than twice a day, which has not afforded any relief. She however continues to smoke cigarettes, has tried quitting with Chantix but was unable to tolerate the dreams and nausea that medication gave her she is afraid also to start nicotine patches as she knows that she will still continues to smoke with the patch. She has also been complaining of feeling tired all the time, with easy fatigability. [facility] Medical History (Updated 12/26/23 @ 01:49 by Jennyfer Jurado MD) Persistent asthma with acute exacerbation Smoker unmotivated to quit Asthma with acute exacerbation Hypersomnia Chronic headaches Chronic right shoulder pain COVID-19 vaccine dose declined Pneumococcal vaccination declined Refused influenza vaccine Heavy cigarette smoker (20-39 per day) Bipolar disorder Surgical History Previous section Family History Brother Substance use disorder Brother Substance use disorder Father No problems noted. Mother HTN (hypertension) Social History Household Members: Spouse Housing: Other Housing Other:: mobile home Alcohol intake: never Patient Tobacco Use Status: Current everyday Tobacco user Cigarette Packs Per Day: 1 Cigarettes Per Day: 20 e-Cigarette/Vaping Use: Never Used service: No Current occupational status: disabled Cognitive needs: No Hearing needs: No Vision needs: Yes Questionnaire Thrive Questionnaire Date Thrive assessed: 09/18/23 THOR-7 AMB Questionnaire THOR-7 Date THOR - 7 assessed: 09/18/23 Source: Developed by Drs. Aj Bruce, Lina Andre, Jethro Chaidez and colleagues, with an educational samia from [employer]. Review of Systems Const Denies chills, Reports fatigue, Denies fever(s) and Denies poor appetite ENT Denies ear discharge, Denies hoarseness, Denies nasal congestion and Denies nasal discharge Card Reports no additional complaints Resp Reports as per HPI GI Denies melena, Denies hematochezia and Denies change in bowel habits Musc Reports no additional complaints Neuro Reports no additional complaints Endo Reports fatigue Faraz/Lymph Reports no additional complaints Aller/Immun Reports seasonal rhinorrhea Physical exam (Primary Care) Vital Signs: Last Vital Signs Pulse 90 12/25/23 09:37 BP 128/88 12/25/23 09:37 Pulse Ox 95 12/25/23 09:37 Oxygen Delivery Method Room Air 12/25/23 09:37 BMI result Body Mass Index 32.3 Tobacco/Smoking Status: Tobacco use Status Tobacco use date assessed 12/25/23 12/25/23 09:50 Patient Tobacco Use Status Current everyday Tobacco 12/25/23 09:38 e-Cigarette/Vaping Use Never Used 12/25/23 09:38 Thrive Assessment: Date of Thrive Assessment Date Thrive assessed 09/18/23 12/25/23 09:38 Const General: no acute distress and alert Nutritional Appearance: obese Orientation/consciousness: patient oriented x3 HENMT Ears: external ears normal, TM's normal bilaterally and EAC's normal General nose exam: Normal external nose present and No nasal discharge present Face and sinus: Yes face symmetric and No sinus tenderness Mouth: Normal oral and palatal mucosa present and moist mucous membranes Neck Neck: Yes full ROM, Yes no lymphadenopathy and Yes supple Resp Other: Tight breath sounds bilaterally, with diffuse expiratory wheezing Effort & Inspection: normal respiratory effort and able to speak in complete sentences Cardio Rate: regular rate Rhythm: regular rhythm Heart sounds: S1 normal heart sound present and S2 normal heart sound present Neuro General: patient oriented x3, gait normal, moves all extremities, no focal motor deficits and CN's II-XI intact bilaterally Assessment and Plan Assessment & Plan (1) Asthma with acute exacerbation: Code(s): J45.901 - Unspecified asthma with (acute) exacerbation Qualifiers: Asthma persistence: intermittent Asthma severity: mild Qualified Code(s): J45.21 - Mild intermittent asthma with (acute) exacerbation Plan: Patient was placed on prednisone taper, and Dulera stopped and changed to Symbicort 160-4.5 mcg per actuation, to take 2 inhalations every 12 hours, use spacer with inhaler. Strongly encouraged to quit smoking, referred to Pulmonary for further evaluation (2) Chronic fatigue: Code(s): R53.82 - Chronic fatigue, unspecified Plan: Will check CBC, vitamin-D, vitamin B12, TSH and free T4, EBV hours and Lyme titer as well as basic metabolic panel and lipid levels (3) Bipolar disorder: Code(s): F31.9 - Bipolar disorder, unspecified Qualifiers: Active/Remission status: remission status unspecified Qualified Code(s): F31.9 - Bipolar disorder, unspecified Plan: Currently under the care of Psychiatry, Orders: Orders Alanine Aminotransferase 12/25/23 G89.29 - Other chronic pain, J45.21 - Mild intermittent asthma with (acute) exacerbation, R09.89 - Other specified symptoms and signs involving the circulatory and respiratory systems, R51.9 - Headache, unspecified, R53.82 - Chronic fatigue, unspecified Basic Metabolic Panel Fasting 12/25/23 G89.29 - Other chronic pain, J45.21 - Mild intermittent asthma with (acute) exacerbation, R09.89 - Other specified symptoms and signs involving the circulatory and respiratory systems, R51.9 - Headache, unspecified, R53.82 - Chronic fatigue, unspecified Lipid Panel 12/25/23 G89.29 - Other chronic pain, J45.21 - Mild intermittent asthma with (acute) exacerbation, R09.89 - Other specified symptoms and signs involving the circulatory and respiratory systems, R51.9 - Headache, unspecified, R53.82 - Chronic fatigue, unspecified Madyson-Saenz Virus Profile 12/25/23 G89.29 - Other chronic pain, J45.21 - Mild intermittent asthma with (acute) exacerbation, R09.89 - Other specified symptoms and signs involving the circulatory and respiratory systems, R51.9 - Headache, unspecified, R53.82 - Chronic fatigue, unspecified Lyme IgG/IgM w/reflex to WB 12/25/23 G89.29 - Other chronic pain, J45.21 - Mild intermittent asthma with (acute) exacerbation, R09.89 - Other specified symptoms and signs involving the circulatory and respiratory systems, R51.9 - Headache, unspecified, R53.82 - Chronic fatigue, unspecified Aspartate Amino Transferase 12/25/23 G89.29 - Other chronic pain, J45.21 - Mild intermittent asthma with (acute) exacerbation, R09.89 - Other specified symptoms and signs involving the circulatory and respiratory systems, R51.9 - Headache, unspecified, R53.82 - Chronic fatigue, unspecified Complete Blood Count Auto Diff 12/25/23 G89.29 - Other chronic pain, J45.21 - Mild intermittent asthma with (acute) exacerbation, R09.89 - Other specified symptoms and signs involving the circulatory and respiratory systems, R51.9 - Headache, unspecified, R53.82 - Chronic fatigue, unspecified Vitamin D 25-OH Total 12/25/23 G89.29 - Other chronic pain, J45.21 - Mild intermittent asthma with (acute) exacerbation, R09.89 - Other specified symptoms and signs involving the circulatory and respiratory systems, R51.9 - Headache, unspecified, R53.82 - Chronic fatigue, unspecified Vitamin B12 and Folate 12/25/23 G89.29 - Other chronic pain, J45.21 - Mild intermittent asthma with (acute) exacerbation, R09.89 - Other specified symptoms and signs involving the circulatory and respiratory systems, R51.9 - Headache, unspecified, R53.82 - Chronic fatigue, unspecified TSH reflex Free T4 12/25/23 G89.29 - Other chronic pain, J45.21 - Mild intermittent asthma with (acute) exacerbation, R09.89 - Other specified symptoms and signs involving the circulatory and respiratory systems, R51.9 - Headache, unspecified, R53.82 - Chronic fatigue, unspecified Referrals Pulmonary Medicine Referral J45.901 - Unspecified asthma with (acute) exacerbation Medications: New prednisone take 4 tablets on days 1 in 2, 3 tablets on days 3 and 4, 2 tablets on days 5 and 6, and 1 tablet on days 7 and 8 take in a.m. with food or milk 10 mg PO DIRECTED 20 tabs 0RF budesonide-formoterol 160-4.5 mcg/actuation (Symbicort) 2 puffs inhalation Q12H 10.2 grams 2RF Discontinued Dulera 200-5 mcg/actuation (mometasone-formoterol) rinse mouth after use Discontinued Reason: Doctor's Order 2 puffs inhalation Q12H 13 grams 5RF NS J45.20 - Mild intermittent asthma, uncomplicated Coding Level of Care Code Est Pt Level 4 (12498) Diagnoses Mild intermittent asthma with acute exacerbation J45.21 Asthma persistence: intermittent Asthma severity: mild Chronic fatigue R53.82 Bipolar affective disorder, remission status unspecified F31.9 Active/Remission status: remission status unspecified
[2023-12-25 09:37] VITALS: BP 128/88; PULSE 90; O2SAT 95; BMI 32.3
== END 2023-12-25 11:53 | disposition home or self-care (01) ==
PROVIDERS: PCP Internal Medicine; Visit Provider Internal Medicine
DX: J45.21 Mild intermittent asthma with (acute) exacerbation (principal); R53.82 Chronic fatigue, unspecified; F31.9 Bipolar disorder, unspecified
CPT/HCPCS: 99214

== ENCOUNTER 2024-02-29 08:52 | Outpatient (REF) | payer MEDICARE, MEDICAID, SELFPAY ==
[2024-02-29 13:05] LABS: MANUAL DIFF FLAG NO
[2024-02-29 13:10] LABS: Basophils Percent Auto 0.3 % (0-2); Eosinophils Absolute Auto 0.4 X10*3/uL (0.0-0.4); Hematocrit 49.3 % (37.0-47.0); Hemoglobin 16.1 g/dl (12.0-16.0); Imm Gran Abs Auto 0.06 X10*3/uL (0.00-0.03); Imm Gran Pct Auto 0.5 % (0.0-0.4); Lymphocytes Absolute Auto 2.4 X10*3/uL (1.2-4.9); Lymphocytes Percent Auto 18.9 % (20-40); Mean Corpuscular HGB Conc 32.7 g/dl (31.0-35.0); Mean Corpuscular Hemoglobin 28.1 pg (27.0-33.0); Mean Corpuscular Volume 86.2 fL (80.0-98.0); Mean Platelet Volume 10.4 fL (9.4-12.3); Monocytes Absolute Auto 1.1 X10*3/uL (0.1-1.2); Monocytes Percent Auto 8.8 % (2-11); Neutrophils Absolute Auto 8.7 x10*3/uL (2.0-8.3); Neutrophils Percent Auto 68.5 % (45-73); Platelet Count 394 X10*3/uL (160-400); Red Blood Count 5.72 X10*6/uL (4.20-5.50); Red Cell Distribution Width 13.5 % (11.0-16.0); White Blood Count 12.7 X10*3/uL (4.8-10.8)
[2024-02-29 13:53] LABS: Alanine Aminotransferase 24 U/L (0-31); Anion Gap 17 (12-20); Aspartate Amino Transferase 17 U/L (5-31); Blood Urea Nitrogen 8 mg/dL (9-16); Carbon Dioxide 23 mmol/L (22-29); Chloride 102 mmol/L (96-108); Cholesterol 233 mg/dL (<200); Estimated Glomerular Filt Rate > 60; Glucose Fasting 110 mg/dL (60-99); HDL Cholesterol 45 mg/dL (>40); LDL Cholesterol Calculated 145 mg/dL (<100); Potassium 4.3 mmol/L (3.3-5.1); Sodium 138 mmol/L (135-145); Triglycerides 217 mg/dL (<150)
[2024-02-29 13:55] LABS: TSH reflex Free T4 0.93 uIU/mL (0.32-4.0); Vitamin D 25-OH Total 64.3 ng/mL (>30)
[2024-02-29 14:06] LABS: Folate 11.8 ng/mL (> or = 4.0); Vitamin B12 630 pg/mL (200-900)
[2024-03-02 02:54] LABS: EBV-NA IgG Index <18.00 U/mL; EBV-VCA IgG Ab >750.00 U/mL; EBV-VCA IgM Ab <36.00 U/mL
[2024-03-02 02:58] LABS: Lyme Abs Screen <0.90 index
== END 2024-02-29 08:53 | disposition home or self-care (01) ==
LOC: HO.HMGCLDS 08:52
PROVIDERS: PCP Internal Medicine; Visit Provider Internal Medicine
DX: R53.82 Chronic fatigue, unspecified (principal); G89.29 Other chronic pain; R51.9 Headache, unspecified; J45.21 Mild intermittent asthma with (acute) exacerbation; R09.89 Other specified symptoms and signs involving the circulatory and respiratory systems
CPT/HCPCS: 36415; 80048; 80061; 82306; 82607; 82746; 84443; 84450; 84460; 85025; 86617; 86618; 86664; 86665

== ENCOUNTER 2024-03-29 11:36 | Outpatient (AMB) | payer MEDICARE, MEDICAID, SELFPAY ==
[2024-03-29 11:58] VITALS: BP 120/80; PULSE 91; O2SAT 94; BMI 31.8
--- NOTE | 2024-03-29 11:58 | HO.NEPHOV_ITS ---
Vital Signs 03/29/24 11:58 Height 5 ft 4 in Weight 185 lb 8 oz BMI 31.8 BP 120/80 Blood Pressure Location Rt brachial Position Sitting Pulse 91 Pulse Source Pulse Oximeter Pulse Oximetry (%) 94 Oxygen Delivery Method Room Air Intake Visit Reasons: Labile blood pressure/ 4 MO FU Medical Physicist Required: No Accompanied by: Self / Same As Patient Allergies amoxicillin Allergy (Severe, Verified 03/29/24 12:00) hives No Known Allergies Allergy (Verified 03/29/24 12:00) HPI Comments Details: I had the privilege of seeing Dori in follow up for blood pressure. 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 She is closely monitored and managed by her primary care physician. She is gained some weight. She had COVID infection in July of 2023. Ever since her blood pressure had been fluctuant. She is not very strict with low- sodium diet. She has been having intermittent headaches. Recently she had some chest pain associated with her COVID infection as well as pulmonary issues which were resolved with a short course of prednisone. She has no history of uncontrolled thyroid disorders, low potassium, high calcium or documented sleep apnea. She has normal renal function. She denies any chest pain, shortness of breath, paroxysmal nocturnal dyspnea, orthopnea, pedal edema, hematuria or orthostatic symptoms. She does not have any palpitation, flushing or diarrhea. She does not take excessive nonsteroidal anti-inflammatories. She has no history of cocaine use. She had a 24 hour BPM which showed sub optimal control of BP without any nocturnal dipping. [facility] Medical History (Updated 03/29/24 @ 12:12 by Severino Morris MD) Persistent asthma with acute exacerbation Smoker unmotivated to quit Asthma with acute exacerbation Hypersomnia Chronic headaches Chronic right shoulder pain COVID-19 vaccine dose declined Pneumococcal vaccination declined Refused influenza vaccine Heavy cigarette smoker (20-39 per day) Bipolar disorder Surgical History Previous section Family History Brother Substance use disorder Brother Substance use disorder Father No problems noted. Mother HTN (hypertension) Social History Household Members: Spouse Housing: Other Housing Other:: mobile home Alcohol intake: never Patient Tobacco Use Status: Current everyday Tobacco user Cigarette Packs Per Day: 1 Cigarettes Per Day: 20 e-Cigarette/Vaping Use: Never Used service: No Current occupational status: disabled Cognitive needs: No Hearing needs: No Vision needs: Yes Review of Systems Const All systems reviewed & are unremarkable except as noted in HPI and below Physical Exam Vital Signs: Last Vital Signs Pulse 91 03/29/24 11:58 BP 120/88 03/29/24 11:58 Pulse Ox 94 03/29/24 11:58 Oxygen Delivery Method Room Air 03/29/24 11:58 BMI result Body Mass Index 31.8 Const General: comfortable and no acute distress Orientation/consciousness: patient oriented x3 HEENT Head: Yes normocephalic Mouth: Normal oral and palatal mucosa present Eyes EOM: EOMs intact bilaterally Neck Neck: Yes supple Resp Auscultation: clear to auscultation bilaterally Cardio Jugular venous distension: no JVD Rate: regular rate GI Palpation (GI): Soft to palpation Auscultation: normal bowel sounds General: Yes no CVA tenderness Back/Spine/Pelvis Back: no CVA tenderness Skin General skin exam: no rashes or lesions noted Neuro General: patient oriented x3 and moves all extremities Extrem General: Yes no pedal edema Results Reviewed Nephrology Results: Hgb 16.1 g/dl (12.0-16.0) H 02/29/24 WBC 12.7 X10*3/uL (4.8-10.8) H 02/29/24 Plt Count 394 X10*3/uL (160-400) 02/29/24 Sodium 138 mmol/L (135-145) 02/29/24 Potassium 4.3 mmol/L (3.3-5.1) 02/29/24 Chloride 102 mmol/L (96-108) 02/29/24 Carbon Dioxide 23 mmol/L (22-29) 02/29/24 BUN 8 mg/dL (9-16) L 02/29/24 Creatinine 0.74 mg/dL (0.5-1.4) 02/29/24 Calcium 10.0 mg/dL (8.4-10.2) 02/29/24 Assessment & Plan Assessment & Plan (1) Hypertension: Code(s): I10 - Essential (primary) hypertension Category: Medical Qualifiers: Hypertension type: primary hypertension Qualified Code(s): I10 - Essential (primary) hypertension Plan Dori has hypertension confirmed by 24 hour ambulatory blood pressure which showed sub optimally controlled BP which improved on Amlodipine 5 mg daily. Her serum potassium and renal functions are normal. She needs to lose weight and be on a low-sodium diet. She claimed that she had sleep study. She has no proteinuria, retinopathy, LVH or renal dysfunction. I answered all questions. Follow-up appointment given Coding Level of Care Code Est Pt Level 4 (46152) Diagnoses Primary hypertension I10 Hypertension type: primary hypertension
== END 2024-03-29 12:19 | disposition home or self-care (01) ==
PROVIDERS: PCP Internal Medicine; Visit Provider Internal Medicine Nephrology
DX: I10 Essential (primary) hypertension (principal)
CPT/HCPCS: 99214

== ENCOUNTER → 2024-03-29 11:36 | Outpatient (BNVA) | payer MEDICARE, MEDICAID, SELFPAY | PROVIDERS: PCP Internal Medicine; Visit Provider Internal Medicine Nephrology | DX: I10 Essential (primary) hypertension (principal); R63.5 Abnormal weight gain | CPT/HCPCS: 99212 ==

== ENCOUNTER 2024-05-03 10:26 | Outpatient (AMB) | payer MEDICARE, MEDICAID, SELFPAY ==
[2024-05-03 10:29] VITALS: BP 130/80; PULSE 90; O2SAT 94; BMI 33.0
--- NOTE | 2024-05-03 10:29 | AM.OFFWIN_ITS ---
Intake Vital Signs 05/03/24 10:29 Height 5 ft 4 in Weight 192 lb BMI 33.0 BP 130/80 Blood Pressure Location Rt brachial Position Sitting Pulse 90 Pulse Source Pulse Oximeter Pulse Oximetry (%) 94 Oxygen Delivery Method Room Air Intake Visit Reasons: EP asthma, pulled muscle?- LUQ Intake Note: pt is here for c/o of SOB with exertion. patient has asthma and COPD and declines the use of oxygen. 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 H/o Asthma and currently takes medicines. She is currently daily smoker. She is currently taking Clindamycin for upcoming Dental work on 05/13 [facility] Medical History (Updated 05/03/24 @ 10:46 by Erica Núñez NP) Persistent asthma with acute exacerbation Smoker unmotivated to quit Asthma with acute exacerbation Hypersomnia Chronic headaches Chronic right shoulder pain COVID-19 vaccine dose declined Pneumococcal vaccination declined Refused influenza vaccine Heavy cigarette smoker (20-39 per day) Bipolar disorder Surgical History Previous section Family History Brother Substance use disorder Brother Substance use disorder Father No problems noted. Mother HTN (hypertension) Social History Household Members: Spouse Housing: Other Housing Other:: mobile home Alcohol intake: never Patient Tobacco Use Status: Current everyday Tobacco user Cigarette Packs Per Day: 1 Cigarettes Per Day: 20 e-Cigarette/Vaping Use: Never Used service: No Current occupational status: disabled Cognitive needs: No Hearing needs: No Vision needs: Yes Review of Systems Const All systems reviewed & are unremarkable except as noted in HPI and below Physical Exam Vital Signs: Last Vital Signs Pulse 90 05/03/24 10:29 BP 130/80 05/03/24 10:29 Pulse Ox 94 05/03/24 10:29 Oxygen Delivery Method Room Air 05/03/24 10:29 BMI result Body Mass Index 33.0 Const General: cooperative and no acute distress; No comfortable Nutritional Appearance: overweight Orientation/consciousness: patient oriented x3 HEENT Head: Yes normocephalic Ears: external ears normal and TM abnormal with fluid behind the TM bilateral Mouth: moist mucous membranes Resp Effort & Inspection: normal respiratory effort and able to speak in complete sentences Auscultation: no crackles, no rales, rhonchi and wheezes Cardio Heart sounds: S1 normal heart sound present and S2 normal heart sound present Neuro General: patient oriented x3 Office Procedures Nebulizer Treatment Nebulizer Treatment 28652-Nodzyqiyd/MDI RX initial, or Nebulizer Subsequent Treatment Nebulizer Treatment Nebulizer Treatment 49033-Gserqfkuk/MDI RX initial, or Nebulizer Subsequent Treatment Office Meds ipratropium 0.5 mg-albuterol 3 mg (2.5 mg base)/3 mL nebulization soln Performing Provider: Erica Núñez NP Performing Location: [facility] Administered by: Erica Núñez NP on 05/03/24 11:00 Dose Route Admin Location Dispensed Lot Number Expiration Date [facility] 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 (2) Wheezing on auscultation: Code(s): R06.2 - Wheezing Plan: Ordered Chest Xray Ordered Neb Treatment Plan Ordered Chest Xray Ordered Neb Treatment Orders: Orders XR chest 2V Today J45.901 - Unspecified asthma with (acute) exacerbation, R06.2 - Wheezing AMB Nebulizer Treatment Today J45.41 - Moderate persistent asthma with (acute) exacerbation, R06.2 - Wheezing Medications: New prednisone 50 mg PO DAILY 5 days 5 tabs 0RF J45.41 - Moderate persistent asthma with (acute) exacerbation, R06.2 - Wheezing Coding Level of Care Code Est Pt Level 4 (02250) Diagnoses Moderate persistent asthma with acute exacerbation J45.41 Asthma severity: moderate Wheezing on auscultation R06.2 CPT Codes Nebulizer Treatment - Nebulizer Treatment, initial or subsequent: 50483- Nebulizer/MDI RX initial, or Nebulizer Subsequent Treatment ([id number]) Nebulizer Treatment - Nebulizer Treatment, initial or subsequent: 02349- Nebulizer/MDI RX initial, or Nebulizer Subsequent Treatment ([id number]) Time Spent (min) 20
== END 2024-05-03 11:25 | disposition home or self-care (01) ==
PROVIDERS: PCP Internal Medicine; Visit Provider Nurse Practitioner Family
DX: J45.41 Moderate persistent asthma with (acute) exacerbation (principal); R06.2 Wheezing

== ENCOUNTER → 2024-05-03 10:26 | Outpatient (BNVA) | payer MEDICARE, MEDICAID, SELFPAY | PROVIDERS: PCP Internal Medicine ==

== ENCOUNTER 2024-05-03 10:44 | Outpatient (REF) | payer MEDICARE, MEDICAID, SELFPAY ==
--- NOTE | ~2024-05-03 | XR_ITS ---
EXAMINATION: XR CHEST CLINICAL INFORMATION: Asthma exacerbation. COMPARISON: August 13, 2022 TECHNIQUE: 2 views of the chest were obtained. FINDINGS: The lungs are well expanded. No focal consolidation. No pleural effusion. Cardiac silhouette is unchanged. XR/XR chest 2V IMPRESSION: No acute abnormality. Electronically signed by: Santos Ventura MD 05/03/2024 11:45 AM EDT
== END 2024-05-03 10:45 | disposition home or self-care (01) ==
LOC: HO.HMGCX 10:44
PROVIDERS: PCP Internal Medicine; Visit Provider Nurse Practitioner Family
DX: J45.901 Unspecified asthma with (acute) exacerbation (principal)
CPT/HCPCS: 71046; 94640; 99212

== ENCOUNTER 2024-05-11 02:13 | Emergency (ER) | payer MEDICARE, MEDICAID, SELFPAY ==
[2024-05-11 02:24] VITALS: BP 124/74; PULSE 104; RESP 19; TEMP 37.1; O2SAT 95; BMI 31.6
--- NOTE | 2024-05-11 03:18 | PC.NURSE ---
pt from home, a&ox4, respirations even and unlabored. pt reporting onset of hives starting Monday. pt reports she has not had any significant changes in her diet or medications, reports discontinuing previous medications at the beginning of the week. pt noted to have hives to bilateral thighs, truck, chest and bilateral lower arms and hands, pt noted to have some swelling to the eyes. pt able to speak in full clear sentences, denies sob, tongue and throat itchiness. aware of pt condition.
--- NOTE | 2024-05-11 03:55 | PC.NURSE ---
attempted to place IV in pt, pt requested for this rn to remove IV and requested medications by mouth rather than through IV access. aware of request, plan for PO medication
--- NOTE | 2024-05-11 04:29 | ED_ITS ---
HPI - Skin/Abscess/Foreign Bdy General Chief complaint: Skin/Abscess/Foreign Body Stated complaint: rash Time Seen by Provider: 05/11/24 03:17 Source: patient Mode of arrival: ambulatory Limitations: no limitations History of Present Illness ED Provider: Dr. Webber HPI narrative: Patient recently finished clindamycin for a dental infection, now with diffuse hives. She has an allergy to amoxicillin. No shortness of breath, no tongue swelling, no uvula swelling. The hives cover her entire body. Related Data Home Medications ?Medication ?Instructions ?Recorded ?Confirmed aripiprazole 20 mg tablet 10 mg PO DAILY 11/15/23 12/25/23 lorazepam 1 mg tablet 1 mg PO DAILY 11/15/23 12/25/23 oxcarbazepine 600 mg tablet 600 mg PO DAILY 11/15/23 12/25/23 (Trileptal) trazodone 100 mg tablet 100 mg PO BEDTIME PRN 11/15/23 12/25/23 lamotrigine 100 mg tablet 50 mg PO DAILY 03/29/24 amlodipine 5 mg tablet 10 mg PO DAILY 05/03/24 chlorhexidine gluconate 0.12 % PO 05/03/24 mouthwash clindamycin HCl 300 mg capsule 300 mg PO Q6H 05/03/24 ibuprofen 600 mg tablet 600 mg PO Q6H PRN 05/03/24 prazosin 1 mg capsule 1 mg PO BEDTIME 05/03/24 Previous Rx's ?Medication ?Instructions ?Recorded inhalational spacing device #1 ea 10/27/22 (BreatheRite MDI Spacer) albuterol sulfate 90 mcg/actuation 1 inh inhalation QID PRN shortness 12/13/23 aerosol inhaler of breath or wheezing #6.7 grams fluticasone furoate 100 1 inh inhalation DAILY #60 ea 01/16/24 mcg-vilanterol 25 mcg/dose inhalation powder (Breo Ellipta) prednisone 50 mg tablet 50 mg PO DAILY 5 days #5 tabs 05/03/24 diphenhydramine HCl 25 mg capsule 25 mg PO TID PRN allergic reaction 05/11/24 (Benadryl) #30 caps prednisone 20 mg tablet 60 mg (3 x 20 mg) PO DAILY #12 tabs 05/11/24 Allergies Allergy/AdvReac Type Severity Reaction Status Date / Time amoxicillin Allergy Severe hives Verified 05/11/24 02:26 No Known Allergies Allergy Verified 05/11/24 02:26 Review of Systems Review of Systems: Yes all other systems are reviewed and are negative Neurologic: Denies Sensory deficit (Neuro) [facility] Past Medical History Medical History Persistent asthma with acute exacerbation Smoker unmotivated to quit Asthma with acute exacerbation Hypersomnia Chronic headaches Chronic right shoulder pain COVID-19 vaccine dose declined Pneumococcal vaccination declined Refused influenza vaccine Heavy cigarette smoker (20-39 per day) Bipolar disorder Surgical History Previous section Family History Family History Brother Substance use disorder Brother Substance use disorder Father No problems noted. Mother HTN (hypertension) Social History Social History Household Members: Spouse Housing: Other Housing Other:: mobile home Alcohol intake: never Patient Tobacco Use Status: Current everyday Tobacco user Cigarette Packs Per Day: 1 Cigarettes Per Day: 20 Smoked in Last 30 Days: Yes e-Cigarette/Vaping Use: Never Used Use of substances other than those prescribed or required for medical reasons: No Advance Directives: No Advance Directives Information Provided: Yes Do you have a plan to hurt others: No Plan Patient : No service: No Current occupational status: disabled Cognitive needs: No Hearing needs: No Vision needs: Yes Physical Exam Vital Signs: Vital Signs: Last Vital Signs Temp 98.7 F 05/11/24 02:24 Pulse 104 H 05/11/24 02:24 Resp 19 05/11/24 02:24 BP 124/74 05/11/24 02:24 Pulse Ox 95 05/11/24 02:24 O2 Del Method Room Air 05/11/24 02:24 BMI result Body Mass Index 31.6 Const: Other: anxious obese female covered in HIVES Nutritional Appearance: obese Orientation/consciousness: oriented to person and patient oriented x3 Limitations: no limitations HEENT: Other: no tongue, or uvula, or lip swelling. Head: Yes normal to inspection Ears: external ears normal General nose exam: Normal external nose present Mouth: Normal oral and palatal mucosa present and oropharynx normal Throat: Yes posterior oropharynx normal Eyes: General: appearance normal, both eyes and all related structures Neck: Other: supple Neck: Yes normal visual inspection Chest: Chest palpation & inspection: normal inspection of the chest Resp: Auscultation: clear to auscultation bilaterally Cardio: Jugular venous distension: no JVD Rate: regular rate Rhythm: regular rhythm Heart sounds: S1 normal heart sound present and S2 normal heart sound present GI: Inspection: Yes normal to inspection Palpation (GI): Soft to palpation, nontender and No hepatosplenomegaly present Auscultation: normal bowel sounds : General: Yes no CVA tenderness Back/Spine/Pelvis: Back: no CVA tenderness Skin: General skin exam: no rashes or lesions noted Neuro: General: oriented to person and patient oriented x3 Cranial nerves: Yes CN's II-XII intact bilaterally Motor exam (neuro): 5/5 motor strength present throughout Sensory Exam: No Sensory deficit (Neuro) Extrem: General: Yes normal to inspection Psych: Appearance: grossly normal Course Course Course Narrative: Patient refusing IV medications will dc home on oral medication Medications Administered Discontinued Medications Generic Name Dose Route Start Last Admin Trade Name Freq PRN Reason Stop Dose Admin Diphenhydramine HCl 50 mg 05/11/24 03:46 05/11/24 03:56 Diphenhydramine Hcl 50 Mg/Ml Vial IVPUSH 05/11/24 03:47 Not Given ONCE ONE Methylprednisolone Sodium Succinate 125 mg 05/11/24 03:46 05/11/24 03:56 Methylprednisolone Sod Succ 125 Mg/2 Ml Vial IVPUSH 05/11/24 03:47 Not Given ONCE ONE Medical Decision Making Differential Diagnosis Differential Diagnoses: The differential diagnosis associated with the presentation includes (allergic reaction, hives, anaphylaxis, clindamycin allergy) Admission/Observation Consideration of admission/observation: Escalation of care including admission/observation considered (upon arrival patient was considered for admission) Discharge Plan Discharge Clinical Impression: Allergic reaction to drug Patient Disposition: Home, Self-Care Instructions: Antibiotic Medication Allergy (ED), General Allergic Reaction (ED) Prescriptions: New prednisone 20 mg tablet 60 mg PO DAILY Qty: 12 0RF diphenhydramine HCl [Benadryl] 25 mg capsule 25 mg PO TID PRN (Reason: allergic reaction) Qty: 30 0RF No Action albuterol sulfate 90 mcg/actuation HFA aerosol inhaler 1 inh inhalation QID PRN (Reason: shortness of breath or wheezing) Qty: 6.7 2RF fluticasone furoate-vilanterol [Breo Ellipta] 100-25 mcg/dose blister with device 1 inh inhalation DAILY Qty: 60 5RF (DME) BreatheRite MDI Spacer Spacer See Rx Instructions .Route Qty: 1 0RF Rx Instructions: As directed oxcarbazepine [Trileptal] 600 mg tablet 600 mg PO DAILY lorazepam 1 mg tablet 1 mg PO DAILY aripiprazole 20 mg tablet 10 mg PO DAILY trazodone 100 mg tablet 100 mg PO BEDTIME PRN lamotrigine 100 mg tablet 50 mg PO DAILY clindamycin HCl 300 mg capsule 300 mg PO Q6H prazosin 1 mg capsule 1 mg PO BEDTIME ibuprofen 600 mg tablet 600 mg PO Q6H PRN chlorhexidine gluconate 0.12 % mouthwash PO amlodipine 5 mg tablet 10 mg PO DAILY prednisone 50 mg tablet 50 mg PO DAILY 5 Days Qty: 5 0RF Referrals: Jennyfer Jurado MD [Primary Care Provider] - 3 days Print Language: Irish
[2024-05-11] MEDS: predniSONE 20 MG TABLET 60 MG PO (04:46)
[2024-05-11] MEDS: diphenhydrAMINE HCL 25 MG CAPSULE PO (04:46)
[2024-05-11 04:47] VITALS: BP 107/63; PULSE 102; RESP 16; TEMP 36.4; O2SAT 95
[2024-05-11 04:49] VITALS: BP 107/63; PULSE 102; RESP 16; TEMP 36.4; O2SAT 95
== END 2024-05-11 04:49 | disposition home or self-care (01) ==
PROVIDERS: Emergency Provider Emergency Medicine; PCP Internal Medicine
DX: T50.905A Adverse effect of unspecified drugs, medicaments and biological substances, initial encounter (principal); L50.0 Allergic urticaria; X58.XXXA Exposure to other specified factors, initial encounter; Y92.9 Unspecified place or not applicable
CPT/HCPCS: 99283; 99284

== ENCOUNTER 2024-05-24 08:03 | Outpatient (AMB) | payer MEDICARE, MEDICAID, SELFPAY ==
[2024-05-24 08:09] VITALS: BP 120/80; PULSE 91; TEMP 36.8; O2SAT 95; BMI 31.6
--- NOTE | 2024-05-24 08:09 | AM.OFFWIN_ITS ---
Intake Vital Signs 05/24/24 08:09 Height 5 ft 5 in Weight 190 lb BMI 31.6 BP 120/80 Blood Pressure Location Lt brachial Position Sitting Pulse 91 Pulse Source Pulse Oximeter Temp 98.2 F Temp Source Oral Pulse Oximetry (%) 95 Oxygen Delivery Method Room Air Intake Visit Reasons: EP-sob, chest tighten, body rash Intake Note: pt is here for SOB, chest tightness. patient had a allergic reaction to clindamycin 3 weeks ago and still have rash. patient has asthma but denies COPD and states her breathing has been labored. Patient Tobacco Use Status: Current everyday Tobacco user Allergies amoxicillin Allergy (Severe, Verified 05/11/24 02:26) hives clindamycin Allergy (Mild, Verified 05/24/24 08:12) Rash Do you need a note to return to daycare/school/sports/work: No HPI HPI Comments History of Present Illness Details This is a 53-year-old female who presented to the walk-in clinic complaining of shortness of breath, chest tightness, and wheezing. Patient reports associated productive cough with sometimes white, sometimes yellow sputum. She reports subjective fever/chills and fatigue. She denies any chest pain or lower extremity edema. She denies any abdominal pain or nausea/vomiting/diarrhea. Patient states she recently had an allergic reaction to clindamycin approximately 3 weeks ago and still complains of a rash. [facility] Medical History Persistent asthma with acute exacerbation Smoker unmotivated to quit Asthma with acute exacerbation Hypersomnia Chronic headaches Chronic right shoulder pain COVID-19 vaccine dose declined Pneumococcal vaccination declined Refused influenza vaccine Heavy cigarette smoker (20-39 per day) Bipolar disorder Surgical History Previous section Family History Brother Substance use disorder Brother Substance use disorder Father No problems noted. Mother HTN (hypertension) Social History Household Members: Spouse Housing: Other Housing Other:: mobile home Alcohol intake: never Patient Tobacco Use Status: Current everyday Tobacco user Cigarette Packs Per Day: 1 Cigarettes Per Day: 20 e-Cigarette/Vaping Use: Never Used service: No Current occupational status: disabled Cognitive needs: No Hearing needs: No Vision needs: Yes Review of Systems Const All systems reviewed & are unremarkable except as noted in HPI and below Reports no additional complaints Eyes Reports no additional complaints ENT Reports no additional complaints Card Reports no additional complaints Resp Reports no additional complaints GI Reports no additional complaints Reports no additional complaints Musc Reports no additional complaints Skin/Breast Reports system reviewed and no additional complaints, except as documented Neuro Reports no additional complaints Psych Reports no additional complaints Endo Reports no additional complaints Faraz/Lymph Reports no additional complaints Aller/Immun Reports no additional complaints Physical Exam Vital Signs: Last Vital Signs Pulse 91 05/24/24 08:09 BP 120/80 05/24/24 08:09 Pulse Ox 95 05/24/24 08:09 Oxygen Delivery Method Room Air 05/24/24 08:09 BMI result Body Mass Index 31.6 Const Other: Vital signs reviewed. Constitutional: Non-toxic appearing. No acute distress. Well-developed and well-nourished. HEENT: Normocephalic and atraumatic. Tympanic membranes without erythema, edema, or bulging bilaterally. External auditory canals without erythema or edema bilaterally. Moist mucous membranes. No pharyngeal erythema or exudates. Her airway is patent without stridor. Skin: Warm and dry. She has scattered maculopapular rash throughout her body. Neck: Full and painless range of motion. No cervical lymphadenopathy. Cardio: Regular rate and rhythm. No murmurs, gallops, or rubs. No lower extremity edema. No JVD. Pulmonary: No respiratory distress. No accessory muscle usage. She is expiratory wheezing bilaterally without crackles/rales or rhonchi. Gastrointestinal: Soft, nontender, and nondistended in all 4 quadrants. Normoactive bowel sounds in all 4 quadrants. Musculoskeletal: Normal range of motion in joints throughout the body. No deformity or other signs of injury. Neuro: Alert and oriented x4. Cranial nerves 2-12 grossly intact. No focal deficits appreciated. Psych: Normal mood and affect. Assessment & Plan Assessment & Plan (1) Persistent asthma with acute exacerbation: Code(s): J45.901 - Unspecified asthma with (acute) exacerbation Qualifiers: Asthma severity: moderate Qualified Code(s): J45.41 - Moderate persistent asthma with (acute) exacerbation (2) Drug rash: Code(s): L27.0 - Generalized skin eruption due to drugs and medicaments taken internally Plan This is a 53-year-old female who presented to the walk-in clinic complaining of shortness of breath, chest tightness, and wheezing with associated productive cough. On physical examination, she has end expiratory wheezing bilaterally as well as scattered maculopapular rash. History and physical most consistent with an acute asthmatic bronchitis as well as a drug-induced rash. Patient does not have any evidence of anaphylaxis at this time. Her airway is patent without stridor. Acute coronary syndrome is less likely given no chest pain and acute asthmatic bronchitis seems more likely; however, I offered the patient an EKG but she declined at this time. Patient was offered a DuoNeb treatment in the office but declined as she wasn't feeling well and just wanted to go home. Patient was discharged home on PO azithromycin 500 mg today followed by 250 mg daily x4 days as well as a prednisone taper over 2 weeks. She was advised to follow-up here or proceed to the emergency room if she were to develop persistent or worsening symptoms. Patient verbalized understanding and is agreeable with the plan. Orders: Orders AMB Nebulizer Treatment Today J45.909 - Unspecified asthma, uncomplicated Medications: New azithromycin For 250 mg dose pack: take 500 mg today (day 1), then 250 mg for 4 days (days 2-5) PO 6 tabs 0RF albuterol sulfate 2.5 mg (3 mL) inhalation ONCE 3 mL 0RF J45.909 - Unspecified asthma, uncomplicated prednisone Take 4 tablets daily x5 days followed by 3 tablets daily x3 days followed by 2 tablets daily x3 days followed by 1 tablet daily x3 days. 10 mg PO DIRECTED 35 tabs 0RF Coding Level of Care Code Est Pt Level 3 (59071) Diagnoses Moderate persistent asthma with acute exacerbation J45.41 Asthma severity: moderate Drug rash L27.0
== END 2024-05-24 08:43 | disposition home or self-care (01) ==
PROVIDERS: PCP Internal Medicine; Visit Provider Physician Assistant Medical
DX: J45.41 Moderate persistent asthma with (acute) exacerbation (principal); L27.0 Generalized skin eruption due to drugs and medicaments taken internally

== ENCOUNTER → 2024-05-24 08:03 | Outpatient (BNVA) | payer MEDICARE, MEDICAID, SELFPAY | PROVIDERS: PCP Internal Medicine; Visit Provider Physician Assistant Medical | DX: J45.41 Moderate persistent asthma with (acute) exacerbation (principal); L27.0 Generalized skin eruption due to drugs and medicaments taken internally | CPT/HCPCS: 99212 ==

== ENCOUNTER 2024-06-13 08:00 | Outpatient (AMB) | payer MEDICARE, MEDICAID, SELFPAY ==
--- NOTE | 2024-06-13 08:02 | MHC.PC.OV ---
Vital Signs 06/13/24 08:03 Height 5 ft 5 in Weight 191 lb BMI 31.8 BP 100/60 Blood Pressure Location Lt brachial Position Sitting Pulse 99 Pulse Source Pulse Oximeter Pulse Oximetry (%) 96 Oxygen Delivery Method Room Air Intake Visit Reasons: PE Intake Note: Pt is here today for her PE: Last mammogram 01/25/23, [place] 02/04/20 Allergies amoxicillin Allergy (Severe, Verified 06/13/24 08:19) hives clindamycin Allergy (Mild, Verified 06/13/24 08:19) Rash Medication List - Last Reconciled 06/13/24 by Jennyfer Jurado MD albuterol sulfate 90 mcg/actuation 1 inh inhalation QID PRN amlodipine 10 mg PO DAILY aripiprazole 15 mg PO DAILY chlorhexidine gluconate 0.12% PO ibuprofen 600 mg PO Q6H PRN inhalational spacing device (BreatheRite MDI Spacer) As directed lorazepam 1 mg PO DAILY mometasone-formoterol 200-5 mcg/actuation (Dulera) 2 puffs inhalation BID oxcarbazepine (Trileptal) 600 mg PO DAILY trazodone 100 mg PO BEDTIME PRN Tobacco use date assessed: 06/13/24 Dental Screening Dental Screen Date: 06/13/24 Did you have a dental visit in the last 12 months?: Yes Did you have a dental problem in the last 6 months where you did not have access to dental care?: Yes Was dental information given to patient?: Patient has dentist HPI PE HPI Details 53 year-old lady with history bipolar disorder currently being followed by Psychiatry at [facility], has mild intermittent asthma, as noted on pulmonary function test done October 2022, stable and controlled on Dulera, rarely needs to use her albuterol inhaler. She continues to smoke cigarettes with no desire to quit, here today for physical exam. She had her cervical cancer screening done at [facility] in 2019, with normal findings, Overdue for a screening mammogram and colonoscopy. Does not want to get any vaccinations Normal home sleep study done last year and had a pulmonary function test done last year's well which showed presence of bronchial asthma. History goes on her Dulera and albuterol inhaler. Patient still smokes a pack a day but is planning to cut back on her smoking but not ready to quit altogether. She has tried nicotine patches in the past but was smoking while on it and she states that she also has tried Chantix in the past which has not helped. Complains of recurrent abdominal bloating, denies any change in bowel habits, no blood in the stool, no dyspepsia or heartburn symptoms, overdue for a screening colonoscopy. [facility] Medical History Persistent asthma with acute exacerbation Smoker unmotivated to quit Hypersomnia COVID-19 vaccine dose declined Pneumococcal vaccination declined Refused influenza vaccine Heavy cigarette smoker (20-39 per day) Bipolar disorder Surgical History Previous section Family History Brother Substance use disorder Brother Substance use disorder Father No problems noted. Mother HTN (hypertension) Social History Household Members: Spouse Housing: Other Housing Other:: mobile home Alcohol intake: never Patient Tobacco Use Status: Current everyday Tobacco user Cigarette Packs Per Day: 1 Cigarettes Per Day: 20 e-Cigarette/Vaping Use: Never Used service: No Current occupational status: disabled Cognitive needs: No Hearing needs: No Vision needs: Yes Female Reproductive History Menstrual Other: Goes to [facility] for routine Pap and pelvic exam Questionnaire PHQ-9 Over the last 2 weeks, how often have you been bothered by any of the following problems? 1. Little interest or pleasure in doing things: several days 2. Feeling down, depressed, or hopeless: several days 3. Trouble falling or staying asleep, or sleeping too much: several days 4. Feeling tired or having little energy: nearly every day 5. Poor appetite or overeating: several days 6. Feeling bad about yourself - or that you are a failure or have let yourself or your family down: several days 7. Trouble concentrating on things, such as reading the newspaper or watching television: several days 8. Moving or speaking so slowly that other people could have noticed. Or the opposite - being so fidgety or restless that you have been moving around a lot more than usual: several days 9. Thoughts that you would be better off or of hurting yourself in some way: not at all Total score: 10 Depression Screening Interpretation: Positive (Currently followed by psychiatry at [facility]) Depression Screening Follow-up: Existing condition, In treatment and Community Mental Health Worker F/U Depression Screening Done: Yes 88980 - PHQ-9 Billing: Yes Source: Developed by Drs. Aj Bruce, Lina Andre, Jethro Chaidez and colleagues, with an educational samia from [employer]. Thrive Questionnaire Date Thrive assessed: 06/13/24 I am a: Patient What is your living situation today?: I have a steady place to live Within the past 12 months, did the food you bought not last and you didn't have the money to get more?: Never true Within the past 12 months, did you worry whether your food would run out before you got money to buy more?: Never true Do you have trouble paying for medicines?: No Do you have trouble getting transportation to medical appointments?: No Do you have trouble paying your heating and electricity bill?: No Do you have trouble taking care of your child, family member or friend?: No Do you have trouble with day-to-day activities such as bathing, preparing meals, shopping, managing finances, etc.?: No Are you currently unemployed and looking for a job?: No Are you interested in more education?: No Please select the resources that you would like help with: None Currently or been in a relationship where the following occur: No concerns reported THRIVE Score: 0 AUDIT C Alcohol Use Questionnaire (AUDIT-C) 1. How often do you have a drink containing alcohol?: Never 2. How many drinks containing alcohol do you have on a typical day when you are drinking?: 1 or 2 Total Score: 0 THOR-7 AMB Questionnaire THOR-7 Date THOR - 7 assessed: 09/18/23 Feeling nervous, anxious, or on edge: 3 = Nearly every day Not being able to stop or control worryin = Nearly every day Worrying too much about different things: 3 = Nearly every day Trouble relaxin = Nearly every day Being so restless that it is hard to sit still: 3 = Nearly every day Becoming easily annoyed or irritable: 3 = Nearly every day Feeling afraid as if something awful might happen: 3 = Nearly every day Total THOR-7 score (0-4 normal; 5-9 mild; 10-14 moderate; 15-21 severe): 21 Source: Developed by Drs. Aj Bruce, Lina Andre, Jethro Chaidez and colleagues, with an educational samia from [employer]. THOR-7 Assessment Billing THOR-7 Assessment Tool: THOR-7 Assessment 64228 (Currently followed by psychiatry at [facility]) Review of Systems Const Denies chills, Reports fatigue, Denies fever(s) and Denies poor appetite Eyes Denies change in vision ENT Denies ear discharge, Denies hoarseness, Denies nasal congestion and Denies nasal discharge Card Reports no additional complaints Resp Reports as per HPI GI Reports as per HPI, Denies melena, Reports bloating, Denies hematochezia, Denies change in bowel habits and Reports excessive flatus Reports no additional complaints Musc Reports no additional complaints Skin/Breast Denies breast pain, Denies breast mass and Denies rash Neuro Reports no additional complaints Psych Reports no additional complaints Endo Reports fatigue Faraz/Lymph Reports no additional complaints Aller/Immun Reports seasonal rhinorrhea Physical exam (Primary Care) Vital Signs: Last Vital Signs Pulse 99 06/13/24 08:03 BP 100/60 06/13/24 08:03 Pulse Ox 96 06/13/24 08:03 Oxygen Delivery Method Room Air 06/13/24 08:03 BMI result Body Mass Index 31.8 Tobacco/Smoking Status: Tobacco use Status Tobacco use date assessed 06/13/24 06/13/24 08:04 Patient Tobacco Use Status Current everyday Tobacco 06/13/24 08:04 e-Cigarette/Vaping Use Never Used 06/13/24 08:04 PHQ-9: PHQ-9 Score PHQ-9: Total score 10 06/13/24 08:15 Depression Screening Interpretation: Positive (Currently followed by psychiatry at [facility]) Depression Screening Follow-up: Existing condition, In treatment and Community Mental Health Worker F/U Thrive Assessment: Date of Thrive Assessment Date Thrive assessed 06/13/24 06/13/24 08:04 Currently or been in a relationship where the following occur: No concerns reported Advance Care Planning discussion: Completed/Scanned Date of discussion: 06/13/24 Who was present: Patient Forms completed: Health Care Proxy Time spent: 16-45 minutes Actual minutes spent: 3 Const General: no acute distress and alert Nutritional Appearance: obese Orientation/consciousness: patient oriented x3 HENMT Ears: external ears normal, TM's normal bilaterally and EAC's normal General nose exam: Normal external nose present and No nasal discharge present Face and sinus: Yes face symmetric and No sinus tenderness Mouth: Normal oral and palatal mucosa present and moist mucous membranes Eyes General: appearance normal, both eyes and all related structures Neck Neck: Yes full ROM, Yes no lymphadenopathy and Yes supple Chest Chest palpation & inspection: normal inspection of the chest Breast/axilla palpation: normal palpation of the breasts Resp Other: Occasional expiratory wheeze bilaterally Effort & Inspection: normal respiratory effort and able to speak in complete sentences Auscultation: diminished lung sounds Cardio Rate: regular rate Rhythm: regular rhythm Heart sounds: S1 normal heart sound present and S2 normal heart sound present GI Inspection: Yes obesity Palpation (GI): Soft to palpation, nontender, no guarding and no hernias Auscultation: normal bowel sounds General: Yes no CVA tenderness and Yes deferred (Goes to [facility]) Back/Spine/Pelvis Back: no CVA tenderness and No back tenderness Skin General skin exam: no rashes or lesions noted Neuro General: patient oriented x3, gait normal, moves all extremities, no focal motor deficits and CN's II-XI intact bilaterally Extrem General: Yes normal to inspection, Yes full ROM, Yes no joint enlargement, Yes no clubbing, cyanosis or edema, Yes no calf tenderness and Yes normal gait Psych Appearance: grossly normal and well kempt Mental Status: mental status grossly normal Speech and movement: Normal speech and movement present Affect: normal affect Attitude: cooperative Thought process: Normal thought process present Thought content: Normal thought content present Coding Level of Care Code Est Pt Prev Care 40-64y(90421) Diagnoses Annual visit for general adult medical examination with abnormal findings Z00.01 Bipolar affective disorder, remission status unspecified F31.9 Active/Remission status: remission status unspecified Primary hypertension I10 Hypertension type: primary hypertension History of leukocytosis Z86.2 Encounter for screening for malignant neoplasm of colon Z12.11 Abdominal bloating R14.0 Smoker unmotivated to quit F17.200 Advanced directives, counseling/discussion Z71.89 Asthma, persistent not controlled J45.998 Additional Codes THOR-7 Assessment Billing - THOR-7 Assessment Tool: THOR-7 Assessment 13464 ([id number]) Vital Signs *Quality* - Advance Care Planning discussion: Completed/Scanned ([id number]) Vital Signs *Quality* - Time spent: 16-45 minutes ([id number]) Assessment & Plan Assessment & Plan (1) Annual visit for general adult medical examination with abnormal findings: Code(s): Z00.01 - Encounter for general adult medical examination with abnormal findings Plan: Will check appropriate labs. Recommended dental visit every 6 months and regular eye exams, at least every 2 years. Take adequate calcium in diet and vitamin-D 3 at 2000 IU per cap once a day, in addition to weight-bearing exercises to help maintain good muscle tone and weight control. Instructed to do self-breast exam, and recommended to get yearly mammogram, overdue, ordered today. Patient gets her routine Pap and pelvic exam at [facility], screening colonoscopy ordered. Patient declines all recommended vaccinations (2) Bipolar disorder: Code(s): F31.9 - Bipolar disorder, unspecified Category: Medical Qualifiers: Active/Remission status: remission status unspecified Qualified Code(s): F31.9 - Bipolar disorder, unspecified Plan: Currently followed by psychiatrist at [facility], advised to follow-up with them as anxiety symptoms seems to be not well controlled on present medication (3) Hypertension: Code(s): I10 - Essential (primary) hypertension Category: Medical Qualifiers: Hypertension type: primary hypertension Qualified Code(s): I10 - Essential (primary) hypertension Plan: Blood pressure at goal of less than 130/80. Continue amlodipine 10 mg daily and Reinforced importance of following a low sodium diet, getting regular exercise, and lowering stress levels. (4) History of leukocytosis: Code(s): Z86.2 - Personal history of diseases of the blood and blood-forming organs and certain disorders involving the immune mechanism Plan: Repeat CBC ordered (5) Encounter for screening for malignant neoplasm of colon: Code(s): Z12.11 - Encounter for screening for malignant neoplasm of colon Plan: Referred to GI Clinic for screening colonoscopy (6) Abdominal bloating: Code(s): R14.0 - Abdominal distension (gaseous) Plan: Gastroenterology consult obtain, advised to avoid dairy, avoid eating greasy oily foods, fried foods. (7) Smoker unmotivated to quit: Code(s): F17.200 - Nicotine dependence, unspecified, uncomplicated Category: Social Hx Plan: Patient states that she has tried nicotine patches but to continue smoking on it, has tried Chantix in the past, does not want to quit altogether but will cut back (8) Advanced directives, counseling/discussion: Code(s): Z71.89 - Other specified counseling Plan: Initiated the conversation about Advanced Directives. Advanced Directives help patients prepare for current and future decisions about their medical treatment and place of care. Discussed with patient that it is a process where a patients current condition and prognosis are reviewed, their wishes for information regarding their illness are elicited, and likely medical dilemmas are presented and options discussed. Healthcare proxy form completed today. The form can be amended as needed, reviewed yearly and make changes as needed (9) Asthma, persistent not controlled: Code(s): J45.998 - Other asthma Category: Medical Plan: Pulmonary referral ordered, continued on Dulera and albuterol inhaler as needed, strongly encouraged to quit smoking. Patient does not want to get any vaccination Orders: Orders MM tomosynthesis screening BI Today Z12.31 - Encounter for screening mammogram for malignant neoplasm of breast Complete Blood Count Auto Diff Today F31.9 - Bipolar disorder, unspecified, I10 - Essential (primary) hypertension, J45.41 - Moderate persistent asthma with (acute) exacerbation, Z86.2 - Personal history of diseases of the blood and blood-forming organs and certain disorders involving the immune mechanism Alanine Aminotransferase Today F31.9 - Bipolar disorder, unspecified, I10 - Essential (primary) hypertension, J45.41 - Moderate persistent asthma with (acute) exacerbation, Z86.2 - Personal history of diseases of the blood and blood-forming organs and certain disorders involving the immune mechanism Lipid Panel Today F31.9 - Bipolar disorder, unspecified, I10 - Essential (primary) hypertension, J45.41 - Moderate persistent asthma with (acute) exacerbation, Z86.2 - Personal history of diseases of the blood and blood-forming organs and certain disorders involving the immune mechanism Basic Metabolic Panel Fasting Today F31.9 - Bipolar disorder, unspecified, I10 - Essential (primary) hypertension, J45.41 - Moderate persistent asthma with (acute) exacerbation, Z86.2 - Personal history of diseases of the blood and blood-forming organs and certain disorders involving the immune mechanism Aspartate Amino Transferase Today F31.9 - Bipolar disorder, unspecified, I10 - Essential (primary) hypertension, J45.41 - Moderate persistent asthma with (acute) exacerbation, Z86.2 - Personal history of diseases of the blood and blood-forming organs and certain disorders involving the immune mechanism Vitamin D 25-OH Total Today F31.9 - Bipolar disorder, unspecified, I10 - Essential (primary) hypertension, J45.41 - Moderate persistent asthma with (acute) exacerbation, Z86.2 - Personal history of diseases of the blood and blood-forming organs and certain disorders involving the immune mechanism Referrals Gastroenterology Referral R14.0 - Abdominal distension (gaseous), Z12.11 - Encounter for screening for malignant neoplasm of colon Pulmonology Referral F17.200 - Nicotine dependence, unspecified, uncomplicated, J45.998 - Other asthma Medications: New mometasone-formoterol 200-5 mcg/actuation (Dulera) 2 puffs inhalation BID 13 grams 1RF J45.41 - Moderate persistent asthma with (acute) exacerbation Refilled albuterol sulfate 90 mcg/actuation 1 inh inhalation QID PRN 6.7 grams 2RF shortness of breath or wheezing
[2024-06-13 08:03] VITALS: BP 100/60; PULSE 99; O2SAT 96; BMI 31.8
== END 2024-06-13 09:30 | disposition home or self-care (01) ==
LOC: HO.HMCC 08:00
PROVIDERS: PCP Internal Medicine; Visit Provider Internal Medicine
DX: Z00.00 Encounter for general adult medical examination without abnormal findings (principal); F31.9 Bipolar disorder, unspecified; I10 Essential (primary) hypertension; Z86.2 Personal history of diseases of the blood and blood-forming organs and certain disorders involving the immune mechanism; Z12.11 Encounter for screening for malignant neoplasm of colon; R14.0 Abdominal distension (gaseous); F17.200 Nicotine dependence, unspecified, uncomplicated; Z71.89 Other specified counseling; J45.998 Other asthma

== ENCOUNTER → 2024-06-13 08:00 | Outpatient (BNVA) | payer MEDICARE, MEDICAID, SELFPAY | PROVIDERS: PCP Internal Medicine; Visit Provider Internal Medicine | DX: Z00.01 Encounter for general adult medical examination with abnormal findings (principal); F31.9 Bipolar disorder, unspecified; I10 Essential (primary) hypertension; R14.0 Abdominal distension (gaseous); J45.998 Other asthma; Z86.2 Personal history of diseases of the blood and blood-forming organs and certain disorders involving the immune mechanism; Z71.89 Other specified counseling | CPT/HCPCS: 96127; 99396; 99497 ==

== ENCOUNTER 2024-07-10 08:09 | Outpatient (AMB) | payer MEDICARE, MEDICAID, SELFPAY ==
[2024-07-10 08:12] VITALS: BP 122/74; PULSE 90; TEMP 36.7; O2SAT 91; BMI 31.6
--- NOTE | 2024-07-10 08:12 | AM.OFFWIN_ITS ---
Intake Vital Signs 07/10/24 08:12 Height 5 ft 5 in Weight 190 lb BMI 31.6 BP 122/74 Blood Pressure Location Rt brachial Position Sitting Pulse 90 Pulse Source Pulse Oximeter Temp 98.1 F Temp Source Oral Pulse Oximetry (%) 91 L Oxygen Delivery Method Room Air Intake Visit Reasons: EP SOB, covid, cough Intake Note: Patient here for SOB, wheezing and cough that started last week. Patient Tobacco Use Status: Current everyday Tobacco user Allergies amoxicillin Allergy (Severe, Verified 07/10/24 08:13) hives clindamycin Allergy (Mild, Verified 07/10/24 08:13) Rash Do you need a note to return to daycare/school/sports/work: No HPI HPI Comments History of Present Illness Details History of Present Illness The patient is a 53-year-old female presenting with shortness of breath and wheezing following a suspected COVID-19 infection. Last week, the patient experienced dizziness, fever, and severe respiratory distress after her neighbor was diagnosed with COVID-19. The patient did not undergo testing for COVID-19 at that time. She reports significant dyspnea upon exertion, describing feelings of turning blue and extreme breathlessness. The patient hears herself wheezing and has been using her maintenance inhaler, Julera, twice daily, alongside Ventolin every four hours for one week. She notes an absence of fever since last week but experienced dizziness alongside her symptoms. The patient mentions a history of past infections requiring prednisone treatment, which she finds helpful. Recently, she completed a Z-Silver regimen for a tooth infection diagnosed two to three weeks ago. The patient denies ear pain, headaches, or sinus tenderness, though she reports white sputum production and oropharyngeal redness. Physical Exam General: Cooperative, healthy appearing, comfortable and no acute distress Orientation/consciousness: Patient oriented x3 Limitations: No limitations Head: Normal to inspection Ears: Hearing grossly normal bilaterally, external ears normal and TM's normal bilaterally Nose: Normal external nose present, Normal nares present and No nasal discharge present Face and sinus: Normal facial exam and Yes sinuses nontender Mouth: Normal oral and palatal mucosa present and moist mucous membranes Throat: Yes tonsils normal, Yes uvula midline. Posterior oropharynx erythema Eyes: Appearance normal, both eyes and all related structures Neck: Normal visual inspection Respirtory: Expiratory wheezes throughout, some vesicular sounds in bilateral bases. Normal respiratory effort, able to speak in complete sentences, Actively coughing, no respiratory distress, not tachypneic, no tripod positioning and no use of accessory muscles. Wheezing present. Cardiovascular: Regular rate and rhythm. Normal S1 and S2 Skin: No rashes or lesions noted Neuro: Patient oriented x3 Extremities: Normal to inspection and Yes no clubbing, cyanosis or edema [facility] Medical History (Updated 07/10/24 @ 08:30 by Marilyn Swenson PA-C) Asthma, persistent not controlled Smoker unmotivated to quit Hypersomnia COVID-19 vaccine dose declined Pneumococcal vaccination declined Refused influenza vaccine Heavy cigarette smoker (20-39 per day) Bipolar disorder Surgical History Previous section Family History Brother Substance use disorder Brother Substance use disorder Father No problems noted. Mother HTN (hypertension) Social History Household Members: Spouse Housing: Other Housing Other:: mobile home Alcohol intake: never Patient Tobacco Use Status: Current everyday Tobacco user Cigarette Packs Per Day: 1 Cigarettes Per Day: 20 e-Cigarette/Vaping Use: Never Used service: No Current occupational status: disabled Cognitive needs: No Hearing needs: No Vision needs: Yes Review of Systems Const All systems reviewed & are unremarkable except as noted in HPI and below Physical Exam Vital Signs: Last Vital Signs Temp 98.1 F 07/10/24 08:12 Pulse 90 07/10/24 08:12 BP 122/74 07/10/24 08:12 Pulse Ox 91 L 07/10/24 08:12 Oxygen Delivery Method Room Air 07/10/24 08:12 BMI result Body Mass Index 31.6 Office Procedures Nebulizer Treatment Nebulizer Treatment [id number]/[id number] RX initial, or Nebulizer Subsequent Treatment Office Meds ipratropium 0.5 mg-albuterol 3 mg (2.5 mg base)/3 mL nebulization soln Performing Provider: Marilyn Swenson PA-C Performing Location: [facility] [place] [facility] Administered by: Marilyn Swenson PA-C on 07/10/24 08:32 Dose Route Admin Location Dispensed Lot Number Expiration Date NDC Top Coater 3 mL inhalation 3 mL [id number] 10/11/25 51655-688-60 [id number] Assessment & Plan Assessment & Plan (1) Asthma exacerbation: Code(s): J45.901 - Unspecified asthma with (acute) exacerbation Qualifiers: Asthma severity: mild Asthma persistence: intermittent Qualified Code(s): J45.21 - Mild intermittent asthma with (acute) exacerbation Plan: For the exacerbation of respiratory symptoms, the patient will start a course of prednisone with a tapering plan ordered as per the patient's preference for symptom management. A nebulizer treatment in the office, Duoneb, is offered to provide immediate relief and facilitate bronchodilation. A chest X-ray is recommended and has been ordered to rule out pneumonia, though the patient has opted to delay it until necessary. The patient should continue using her maintenance inhaler, Dulera, and Ventolin as required. Orders: Orders XR chest 2V Today R05.9 - Cough, unspecified AMB Nebulizer Treatment Today J45.21 - Mild intermittent asthma with (acute) exacerbation Medications: New prednisone On days 1-3, take 2 tablets with breakfast. On days 4-6 take 1 tablet with breakfast, on days 7-10 take 0.5 tablet with breakfast 20 mg PO DAILY 11 tabs 0RF Coding Level of Care Code Est Pt Level 4 (06077) Diagnoses Mild intermittent asthma with exacerbation J45.21 Asthma severity: mild Asthma persistence: intermittent CPT Codes Nebulizer Treatment - Nebulizer Treatment, initial or subsequent: 32752- Nebulizer/MDI RX initial, or Nebulizer Subsequent Treatment ([id number])
== END 2024-07-10 09:21 | disposition home or self-care (01) ==
PROVIDERS: PCP Internal Medicine; Visit Provider Physician Assistant
DX: J45.21 Mild intermittent asthma with (acute) exacerbation (principal)

== ENCOUNTER → 2024-07-10 08:09 | Outpatient (BNVA) | payer MEDICARE, MEDICAID, SELFPAY | PROVIDERS: PCP Internal Medicine; Visit Provider Physician Assistant | DX: J45.21 Mild intermittent asthma with (acute) exacerbation (principal) | CPT/HCPCS: 94640; 99212 ==

== ENCOUNTER 2024-08-23 14:56 | Outpatient (AMB) | payer MEDICARE, MEDICAID, SELFPAY ==
[2024-08-23 14:58] VITALS: BP 112/78; PULSE 101; O2SAT 94; BMI 32.5
--- NOTE | 2024-08-23 14:58 | A.OFFVIS_ITS ---
Vital Signs 08/23/24 14:58 Height 5 ft 5 in Weight 195 lb 1.745 oz BMI 32.5 BP 112/78 Blood Pressure Location Rt brachial Position Sitting Pulse 101 H Pulse Source Pulse Oximeter Pulse Oximetry (%) 94 Oxygen Delivery Method Room Air Intake Visit Reasons: Asthma Allergies amoxicillin Allergy (Severe, Verified 08/23/24 15:01) hives clindamycin Allergy (Mild, Verified 08/23/24 15:01) Rash HPI Comments Details: The patient is here for pulmonary evaluation. The patient is a 53 year woman who is an active smoker with a history of asthma. She is presenting worsening respiratory symptoms and multiple urgent care visits. The patient states that she had breathing studies back in 2023. She actually had a methacholine challenge that was positive. And she also had a moderate obstruction. 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 She also had significant eosinophilia and therefore she is a candidate for Dupixent based on her severity of her obstructive airway disease. The patient has been on Dulera. Although she has significant wheezing and chest tightness and uses her rescue inhaler multiple times a day. She does have a nebulizer. On exam she does have significant rhonchi wheezing prolonged expiratory phase so therefore we gave it to DuoNeb treatments. She was having diminished breath sounds. Will go ahead and send her script for prednisone and will start her on Trelegy to see if this provides better relief. She is going to take a nebulizer with her in order to provide bronchodilator therapy as well with the nebulizer. In the meantime she needs to cut down his smoking. She is not interested in the lung cancer screening program at this time. Will have her get blood work including allergy testing and then follow-up in 1 6 weeks. If the patient is where she will have to go to the ER. [facility] Medical History (Updated 08/25/24 @ 19:49 by Sterling Rocha MD) Smoker Asthma-COPD overlap syndrome Asthma, persistent not controlled Smoker unmotivated to quit Hypersomnia COVID-19 vaccine dose declined Pneumococcal vaccination declined Refused influenza vaccine Heavy cigarette smoker (20-39 per day) Bipolar disorder Surgical History Previous section Family History Brother Substance use disorder Brother Substance use disorder Father No problems noted. Mother HTN (hypertension) Social History Household Members: Spouse Housing: Other Housing Other:: mobile home Alcohol intake: never Patient Tobacco Use Status: Current everyday Tobacco user Cigarette Packs Per Day: 1 Cigarettes Per Day: 20 e-Cigarette/Vaping Use: Never Used service: No Current occupational status: disabled Cognitive needs: No Hearing needs: No Vision needs: Yes Physical Exam Vital Signs: Last Vital Signs Pulse 101 H 08/23/24 14:58 BP 112/78 08/23/24 14:58 Pulse Ox 94 08/23/24 14:58 Oxygen Delivery Method Room Air 08/23/24 14:58 BMI result Body Mass Index 32.5 Office Procedures Nebulizer Treatment Nebulizer Treatment 19309-Woeixngle/MDI RX initial, or Nebulizer Subsequent Treatment Office Meds ipratropium 0.5 mg-albuterol 3 mg (2.5 mg base)/3 mL nebulization soln Performing Provider: Sterling Rocha MD Performing Location: [facility] Administered by: Renetta Diaz LPN on 08/23/24 15:24 Dose Route Admin Location Dispensed Lot Number Expiration Date [facility] [employer] 3 mL inhalation 3 mL [id number] 11/11/25 18708-222-67 [employer] Assessment & Plan Assessment & Plan (1) Allergies: Code(s): T78.40XA - Allergy, unspecified, initial encounter Category: Medical Qualifiers: Encounter type: initial encounter Qualified Code(s): T78.40XA - Allergy, unspecified, initial encounter (2) Asthma-COPD overlap syndrome: Code(s): J44.89 - Other specified chronic obstructive pulmonary disease Category: Medical (3) Smoker: Code(s): F17.200 - Nicotine dependence, unspecified, uncomplicated Category: Medical Plan start Trelegy stop Dulera Nebulizer provided start Duoneb BID start prednisone taper bloodwork and allergy May benefit from Dupixent Tobacco cessation: will start cutting down Not interested on LDCT program at this time F/U 6-8 weeks Orders: Orders Immunoglobulins,IgG IgA IgM 08/23/24 J44.89 - Other specified chronic obstructive pulmonary disease, T78.40XA - Allergy, unspecified, initial encounter Erythrocyte Sedimentation Rate 08/23/24 J44.89 - Other specified chronic obstructive pulmonary disease, T78.40XA - Allergy, unspecified, initial encounter AMB Nebulizer Treatment 08/23/24 J45.21 - Mild intermittent asthma with (acute) exacerbation Immunoglobulin E 08/23/24 J44.89 - Other specified chronic obstructive pulmonary disease, T78.40XA - Allergy, unspecified, initial encounter Complete Blood Count Auto Diff 08/23/24 J44. - Other specified chronic obstructive pulmonary disease, T78.40XA - Allergy, unspecified, initial encounter Resp Allergy Profile Region I 08/23/24 J44. - Other specified chronic obstructive pulmonary disease, R91.1 - Solitary pulmonary nodule, T78.40XA - Allergy, unspecified, initial encounter Basic Metabolic Panel 08/23/24 J44 - Other specified chronic obstructive pulmonary disease, T78.40XA - Allergy, unspecified, initial encounter Medications: New qcbwilgvotl-zcnadkldv-onotyjnt 200-62.5-25 mcg (Trelegy Ellipta) 1 inh inhalation DAILY 60 ea 12RF 30 days ipratropium-albuterol 0.5 mg-3 mg(2.5 mg base)/3 mL 3 mL inhalation BID 180 mL 11RF 30 days J44.9 - Chronic obstructive pulmonary disease, unspecified prednisone PO daily; Take 3 tabs daily x 5 days, then 2 tabs daily x 5 days, then 1 tab daily x 5 days 30 tabs 0RF 15 days benzonatate 200 mg PO BID PRN 30 caps 0RF cough 30 days Discontinued mometasone-formoterol 200-5 mcg/actuation (Dulera) Discontinued Reason: Doctor's Order 2 puffs inhalation BID 13 grams 5RF J45.41 - Moderate persistent asthma with (acute) exacerbation Coding Level of Care Code New Pt Level 4 (72902) Diagnoses Allergy, initial encounter T78.40XA Encounter type: initial encounter Asthma-COPD overlap syndrome J44.89 Smoker F17.200 CPT Codes Nebulizer Treatment - Nebulizer Treatment, initial or subsequent: 33330- Nebulizer/MDI RX initial, or Nebulizer Subsequent Treatment ([id number]) Time Spent (min) 40
== END 2024-08-23 15:51 | disposition home or self-care (01) ==
PROVIDERS: PCP Internal Medicine; Visit Provider Hospitalist
DX: J45.21 Mild intermittent asthma with (acute) exacerbation (principal)
CPT/HCPCS: 99204

== ENCOUNTER → 2024-08-23 14:56 | Outpatient (BNVA) | payer MEDICARE, MEDICAID, SELFPAY | PROVIDERS: PCP Internal Medicine; Visit Provider Hospitalist | DX: J44.89 Other specified chronic obstructive pulmonary disease (principal); T78.40XA Allergy, unspecified, initial encounter; F17.210 Nicotine dependence, cigarettes, uncomplicated | CPT/HCPCS: 94640; 99202 ==

== ENCOUNTER 2024-09-23 09:32 | Outpatient (REF) | payer MEDICARE, MEDICAID, SELFPAY | END 2024-09-23 09:33 | disposition home or self-care (01) | LOC: HO.MAMMO 09:32 | PROVIDERS: PCP Internal Medicine; Visit Provider Internal Medicine | DX: Z12.31 Encounter for screening mammogram for malignant neoplasm of breast (principal) | CPT/HCPCS: 77063; 77067 ==

== ENCOUNTER → 2024-09-23 09:45 | Outpatient (BNV) | payer MEDICARE, MEDICAID, SELFPAY | PROVIDERS: PCP Internal Medicine; Visit Provider Internal Medicine | DX: Z12.31 Encounter for screening mammogram for malignant neoplasm of breast (principal) | CPT/HCPCS: 77063; 77067 ==

== ENCOUNTER 2024-10-02 10:07 | Outpatient (AMB) | payer MEDICARE, MEDICAID, SELFPAY ==
--- NOTE | 2024-10-02 10:10 | MHC.OFFVIS ---
Vital Signs 10/02/24 10:11 Height 5 ft 5 in Weight 202 lb 13.204 oz BMI 33.7 BP 110/72 Blood Pressure Location Rt brachial Position Sitting Pulse 99 Pulse Source Pulse Oximeter Pulse Oximetry (%) 90 L Oxygen Delivery Method Room Air Intake Visit Reasons: Asthma Allergies amoxicillin Allergy (Severe, Verified 10/02/24 10:14) hives clindamycin Allergy (Mild, Verified 10/02/24 10:14) Rash HPI Comments Details: The patient is a 53 year woman who is an active smoker with a history of asthma. She is presenting worsening respiratory symptoms and multiple urgent care visits. The patient states that she had breathing studies back in 2023. She actually had a methacholine challenge that was positive. And she also had a moderate obstruction. 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 She also had significant eosinophilia and therefore she is a candidate for Dupixent based on her severity of her obstructive airway disease. The patient has been on Dulera. Although she has significant wheezing and chest tightness and uses her rescue inhaler multiple times a day. She does have a nebulizer. On exam she does have significant rhonchi wheezing prolonged expiratory phase so therefore we gave it to DuoNeb treatments. She was having diminished breath sounds. Will go ahead and send her script for prednisone and will start her on Trelegy to see if this provides better relief. She is going to take a nebulizer with her in order to provide bronchodilator therapy as well with the nebulizer. In the meantime she needs to cut down his smoking. She is not interested in the lung cancer screening program at this time. Will have her get blood work including allergy testing and then follow-up in 1 6 weeks. If the patient is where she will have to go to the ER. 10/02/2024 the patient is here for a pulmonary follow-up visit. The patient continues to struggle with her breathing. She feels every time she comes off the prednisone wheezing that is worsening chest congestion gets worse and she does not feel well. She feels like she needs to stay on the prednisone. She has been using the Trelegy inhaler and also has been using her nebulizer therapy. Unfortunately she continues to smoke cigarettes. She has a hard time quitting the addiction. She complains of some pleuritic chest discomfort primarily on the left side. Moderate severity. She not sure if is musculoskeletal or or her lungs. Will have her get a chest x-ray in addition to blood work today. She can start slow prednisone taper and also antibiotics. She also is a good candidate for Daliresp. Will try to get a sputum culture if possible. She was reluctant about the lung cancer screening program in the past. We can reconsider that depending on her results. [facility] Medical History (Updated 10/02/24 @ 14:57 by Sterling Rocha MD) Chest pain Smoker Asthma-COPD overlap syndrome Asthma, persistent not controlled Smoker unmotivated to quit Hypersomnia COVID-19 vaccine dose declined Pneumococcal vaccination declined Refused influenza vaccine Heavy cigarette smoker (20-39 per day) Bipolar disorder Surgical History Previous section Family History Brother Substance use disorder Brother Substance use disorder Father No problems noted. Mother HTN (hypertension) Social History (Updated 10/02/24 @ 10:14 by Darlene Perales CMA) Household Members: Spouse Housing: Other Housing Other:: mobile home Alcohol intake: never Patient Tobacco Use Status: Current everyday Tobacco user Cigarette Packs Per Day: 0.75 Cigarettes Per Day: 15 e-Cigarette/Vaping Use: Never Used service: No Current occupational status: disabled Cognitive needs: No Hearing needs: No Vision needs: Yes Review of Systems Const Denies chills, Reports fatigue, Denies fever(s) and Denies poor appetite Eyes Denies change in vision ENT Denies ear discharge, Denies hoarseness, Denies nasal congestion and Denies nasal discharge Card Reports no additional complaints Resp Reports chest congestion and Reports cough GI Reports as per HPI, Denies melena, Reports bloating, Denies hematochezia, Denies change in bowel habits and Reports excessive flatus Reports no additional complaints Musc Reports no additional complaints Skin/Breast Denies breast pain, Denies breast mass and Denies rash Neuro Reports no additional complaints Psych Reports no additional complaints Endo Reports fatigue Faraz/Lymph Reports no additional complaints Aller/Immun Reports seasonal rhinorrhea Physical Exam Vital Signs: Last Vital Signs Pulse 99 10/02/24 10:11 BP 110/72 10/02/24 10:11 Pulse Ox 90 L 10/02/24 10:11 Oxygen Delivery Method Room Air 10/02/24 10:11 BMI result Body Mass Index 33.7 Const General: comfortable HEENT Head: Yes normocephalic Neck Neck: Yes supple Chest Chest palpation & inspection: normal inspection of the chest Resp Effort & Inspection: normal respiratory effort and prolonged expiratory phase Auscultation: rhonchi, wheezes and diminished lung sounds Cardio Heart sounds: S1 normal heart sound present and S2 normal heart sound present GI Palpation (GI): Soft to palpation Skin General skin exam: no rashes or lesions noted Extrem General: No cyanosis Assessment & Plan Assessment & Plan (1) Allergies: Code(s): T78.40XA - Allergy, unspecified, initial encounter Category: Medical Qualifiers: Encounter type: initial encounter Qualified Code(s): T78.40XA - Allergy, unspecified, initial encounter (2) Asthma-COPD overlap syndrome: Code(s): J44.89 - Other specified chronic obstructive pulmonary disease Category: Medical (3) Smoker: Code(s): F17.200 - Nicotine dependence, unspecified, uncomplicated Category: Social Hx (4) Chest pain: Code(s): R07.9 - Chest pain, unspecified Category: Medical Qualifiers: Chest pain type: unspecified Qualified Code(s): R07.9 - Chest pain, unspecified Plan continue Trelegy start Prednisone taper start Doxycycline start Daliresp 250mcg Nebulizer Duoneb BID bloodwork and allergy Tobacco cessation: will start cutting down Not interested on LDCT program at this time F/U 6-8 weeks Orders: Orders XR chest 2V Today R07.9 - Chest pain, unspecified Medications: New roflumilast (Daliresp) 250 mcg PO DAILY 30 tabs 11RF 30 days J44.9 - Chronic obstructive pulmonary disease, unspecified doxycycline monohydrate 100 mg PO BID 20 tabs 0RF 10 days doxycycline monohydrate 100 mg PO BID 28 tabs 0RF 14 days prednisone PO daily; 3 tabs daily x 7 days, then 2 tabs daily x 7 days, then 1 tab daily x 14 days 49 tabs 0RF 28 days Coding Level of Care Code Est Pt Level 4 (94650) Diagnoses Allergy, initial encounter T78.40XA Encounter type: initial encounter Asthma-COPD overlap syndrome J44.89 Smoker F17.200 Chest pain, unspecified type R07.9 Chest pain type: unspecified Time Spent (min) 16
[2024-10-02 10:11] VITALS: BP 110/72; PULSE 99; O2SAT 90; BMI 33.7
== END 2024-10-02 10:35 | disposition home or self-care (01) ==
PROVIDERS: PCP Internal Medicine; Visit Provider Hospitalist
DX: T78.40XA Allergy, unspecified, initial encounter (principal); J44.89 Other specified chronic obstructive pulmonary disease; F17.200 Nicotine dependence, unspecified, uncomplicated; R07.9 Chest pain, unspecified
CPT/HCPCS: 99214

== ENCOUNTER → 2024-10-02 10:07 | Outpatient (BNVA) | payer MEDICARE, MEDICAID, SELFPAY | PROVIDERS: PCP Internal Medicine; Visit Provider Hospitalist | DX: J44.89 Other specified chronic obstructive pulmonary disease (principal); F17.210 Nicotine dependence, cigarettes, uncomplicated; R07.9 Chest pain, unspecified; T78.40XA Allergy, unspecified, initial encounter; X58.XXXA Exposure to other specified factors, initial encounter; Y93.9 Activity, unspecified; Y92.9 Unspecified place or not applicable; Y99.9 Unspecified external cause status | CPT/HCPCS: 99212 ==

== ENCOUNTER 2024-10-03 21:56 | Emergency (ER) | payer MEDICARE, MEDICAID, SELFPAY ==
--- NOTE | ~2024-10-03 | XR_ITS ---
CLINICAL HISTORY: fall, pain 4 view, chest and left ribs Comparison: CR/DC/SR - XR CHEST 2V - 05/03/24 10:50 EDT Findings: Bones intact. No dislocations. The lungs are unremarkable. IMPRESSION: 1. No acute fractures. This document has been electronically signed by: Willy Hess MD, PHD on 10/03/2024 23:16:36
--- NOTE | ~2024-10-03 | XR_ITS ---
CLINICAL HISTORY: fall, pain 3 views lumbar spine Comparison: None Findings: Normal alignment. Small Schmorl's node violates the superior anterior endplate of L3. Mild multilevel degenerative changes are present, with disc height loss more severe at L5-S1. IMPRESSION: No acute findings. This document has been electronically signed by: Willy Hess MD, PHD on 10/03/2024 23:16:19
[2024-10-03 21:59] VITALS: BP 138/89; PULSE 98; O2SAT 90
[2024-10-03 22:08] VITALS: BP 138/87; PULSE 97; RESP 20; TEMP 36.1; O2SAT 91; BMI 31.6
[2024-10-03 22:15] VITALS: O2SAT 94
== END 2024-10-04 00:55 | disposition left against medical advice (07) ==
PROVIDERS: Emergency Provider Internal Medicine; PCP Internal Medicine
DX: M54.50 Low back pain, unspecified (principal); R07.81 Pleurodynia
CPT/HCPCS: 71101; 72100; 99212; 99281; 99282

== ENCOUNTER → 2024-10-03 22:33 | Outpatient (BNV) | payer MEDICARE, MEDICAID, SELFPAY | PROVIDERS: Visit Provider General Practice | DX: R07.9 Chest pain, unspecified (principal); M54.50 Low back pain, unspecified; W19.XXXA Unspecified fall, initial encounter | CPT/HCPCS: 71101; 72100 ==

== ENCOUNTER 2024-10-04 08:05 | Outpatient (AMB) | payer MEDICARE, MEDICAID, SELFPAY ==
[2024-10-04 08:25] VITALS: BP 120/82; PULSE 95; O2SAT 95
--- NOTE | 2024-10-04 08:25 | AM.OFFWIN_ITS ---
Intake Vital Signs 10/04/24 08:25 Weight 201 lb BP 120/82 Blood Pressure Location Rt brachial Position Sitting Pulse 95 Pulse Source Pulse Oximeter Pulse Oximetry (%) 95 Oxygen Delivery Method Room Air Intake Visit Reasons: EP-entire back pain Intake Note: Patient here for back and rib pain that started about 1 month ago and then a couple of weeks ago she had a fall. Patient Tobacco Use Status: Current everyday Tobacco user Allergies amoxicillin Allergy (Severe, Verified 10/04/24 08:30) hives clindamycin Allergy (Mild, Verified 10/04/24 08:30) Rash Do you need a note to return to daycare/school/sports/work: No HPI HPI Comments History of Present Illness Details History of Present Illness - The patient is a 53-year-old female pr esenting with severe musculoskeletal pain in the upper and mid-left back. - Pain associated with a coughing episod e last night, described as feeling a snapping and cracking sensation. - Previously experienced rib pain persis ting over one month, exacerbated by recurrent coughing and previous fall. - Underwent imaging in the emergency dep artment showing no fractures but symptoms of significant musculoskeletal strain, she left before getting results as wait was too long - History of COPD with recent exacerbati on managed with prednisone, doxycycline, and Trelegy; she is not fully using the prescribed nebulizer. - Non-compliance noted with nebulizer tr eatment; pain persists despite current therapy, increasing concern over musculoskeletal injury. - Reports smoking and has been diagnosed with asthma-COPD overlap syndrome. Physical Exam General: Cooperative, healthy appearing, comfortable, no acute distress and well developed Orientation: Patient oriented x3 Limitations: No limitations Head: Normal to inspection Ears: Hearing grossly normal bilaterally Nose: Normal external nose present Face and sinus: Normal facial exam Eyes: Appearance normal, both eyes and all related structures Neck: Normal visual inspection and Yes full ROM Respiratory: normal respiratory effort, speaking in full sentences Skin: No rashes or lesions noted Neuro: Patient oriented x3 Extremities: Normal to inspection [facility] Medical History (Updated 10/04/24 @ 08:50 by Marilyn Swenson PA-C) Chest pain Smoker Asthma-COPD overlap syndrome Asthma, persistent not controlled Smoker unmotivated to quit Hypersomnia COVID-19 vaccine dose declined Pneumococcal vaccination declined Refused influenza vaccine Heavy cigarette smoker (20-39 per day) Bipolar disorder Surgical History Previous section Family History Brother Substance use disorder Brother Substance use disorder Father No problems noted. Mother HTN (hypertension) Social History (Updated 10/02/24 @ 10:14 by Darlene Perales CMA) Household Members: Spouse Housing: Other Housing Other:: mobile home Alcohol intake: never Patient Tobacco Use Status: Current everyday Tobacco user Cigarette Packs Per Day: 0.75 Cigarettes Per Day: 15 e-Cigarette/Vaping Use: Never Used service: No Current occupational status: disabled Cognitive needs: No Hearing needs: No Vision needs: Yes Review of Systems Const All systems reviewed & are unremarkable except as noted in HPI and below Physical Exam Vital Signs: Last Vital Signs Pulse 95 10/04/24 08:25 BP 120/82 10/04/24 08:25 Pulse Ox 90 L 10/04/24 08:25 Oxygen Delivery Method Room Air 10/04/24 08:25 Back/Spine/Pelvis Cervical Spine: cervical ROM normal and No Cervical spine tenderness Thoracic/Lumbar Spine: No pain with thoraco-lumbar ROM, paraspinal muscle tenderness on the left in the mid thoracic and in the lower thoracic, No thoracic spinal tenderness and No lumbar spinal tenderness Assessment & Plan Assessment & Plan (1) Muscle strain of left upper back: Code(s): S29.012A - Strain of muscle and tendon of back wall of thorax, initial encounter Qualifiers: Encounter type: initial encounter Qualified Code(s): S29.012A - Strain of muscle and tendon of back wall of thorax, initial encounter Plan: Plan For managing musculoskeletal pain, naproxen at prescription strength will be prescribed and monitored for efficacy, while avoiding additional NSAIDs to prevent GI complications. Muscle relaxants will be provided for muscle spasms, with precautions against alcohol and driving. Respiratory management will highlight strict compliance with the nebulizer and Trelegy medication, while benzonatate will be offered to reduce nocturnal cough. Attention will remain on current COPD management with established treatments and inhaler usage. Potential GI risks/bleeding associated with naproxen and prednisone will be monitored, ensuring patient awareness of such side effects and factoring in her current non-drinking status. While smoking cessation counseling is crucial, it remains an aspect to be discussed more thoroughly with her docketing specialist in future encounters. Continuing engagement with her specialist for asthma-COPD syndrome management is recommended for comprehensive care. Patient was informed and verbally consented to the use of an ambient scribe for clinic note documentation during this visit. Medications: New naproxen 500 mg PO Q12H PRN 20 tabs 0RF pain cyclobenzaprine 5 mg PO Q8H PRN 15 tabs 0RF Muscle Spasm benzonatate 200 mg PO .qhs PRN 14 caps 0RF cough Coding Level of Care Code Est Pt Level 4 (53498) Diagnoses Muscle strain of left upper back, initial encounter S29.012A Encounter type: initial encounter
== END 2024-10-04 09:01 | disposition home or self-care (01) ==
PROVIDERS: PCP Internal Medicine; Visit Provider Physician Assistant
DX: S29.012A Strain of muscle and tendon of back wall of thorax, initial encounter (principal)

== ENCOUNTER 2024-11-08 09:24 | Outpatient (AMB) | payer MEDICARE, MEDICAID, SELFPAY ==
--- NOTE | 2024-11-08 09:35 | HO.NEPHOV ---
Vital Signs 11/08/24 09:38 Height 5 ft 5 in Weight 198 lb 4 oz BMI 33.0 BP 104/80 Blood Pressure Location Lt brachial Position Sitting Pulse 98 Pulse Source Pulse Oximeter Pulse Oximetry (%) 93 Oxygen Delivery Method Room Air Intake Visit Reasons: Labile blood pressure-Voicemail not set [employer] Cook Required: No Accompanied by: Self / Same As Patient Allergies amoxicillin Allergy (Severe, Verified 11/08/24 09:38) hives clindamycin Allergy (Mild, Verified 11/08/24 09:38) Rash HPI Comments Details: I had the privilege of seeing Dori in follow up for blood pressure. 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 She is closely monitored and managed by her primary care physician. She is gained some weight. She had COVID infection in July of 2023. Ever since her blood pressure had been fluctuant. She is not very strict with low-sodium diet. She has been having intermittent headaches. Recently she had some chest pain associated with her COVID infection as well as pulmonary issues which were resolved with a short course of prednisone. She has no history of uncontrolled thyroid disorders, low potassium, high calcium or documented sleep apnea. She has normal renal function. She denies any chest pain, shortness of breath, paroxysmal nocturnal dyspnea, orthopnea, pedal edema, hematuria or orthostatic symptoms. She does not have any palpitation, flushing or diarrhea. She does not take excessive nonsteroidal anti-inflammatories. Her BP is well controlled now [facility] Medical History (Updated 10/04/24 @ 08:50 by Marilyn Swenson PA-C) Chest pain Smoker Asthma-COPD overlap syndrome Asthma, persistent not controlled Smoker unmotivated to quit Hypersomnia COVID-19 vaccine dose declined Pneumococcal vaccination declined Refused influenza vaccine Heavy cigarette smoker (20-39 per day) Bipolar disorder Surgical History Previous section Family History Brother Substance use disorder Brother Substance use disorder Father No problems noted. Mother HTN (hypertension) Social History Household Members: Spouse Housing: Other Housing Other:: mobile home Alcohol intake: never Patient Tobacco Use Status: Current everyday Tobacco user Cigarette Packs Per Day: 0.75 Cigarettes Per Day: 15 e-Cigarette/Vaping Use: Never Used service: No Current occupational status: disabled Cognitive needs: No Hearing needs: No Vision needs: Yes Review of Systems Const All systems reviewed & are unremarkable except as noted in HPI and below Physical Exam Vital Signs: Last Vital Signs Pulse 98 11/08/24 09:38 BP 104/80 11/08/24 09:38 Pulse Ox 93 11/08/24 09:38 Oxygen Delivery Method Room Air 11/08/24 09:38 BMI result Body Mass Index 33.0 Const General: comfortable and no acute distress Orientation/consciousness: patient oriented x3 HEENT Head: Yes normocephalic Mouth: Normal oral and palatal mucosa present Eyes EOM: EOMs intact bilaterally Neck Neck: Yes supple Resp Auscultation: clear to auscultation bilaterally Cardio Jugular venous distension: no JVD Rate: regular rate GI Palpation (GI): Soft to palpation Auscultation: normal bowel sounds General: Yes no CVA tenderness Back/Spine/Pelvis Back: no CVA tenderness Skin General skin exam: no rashes or lesions noted Neuro General: patient oriented x3 and moves all extremities Extrem General: Yes no pedal edema Results Reviewed Nephrology Results: No Data to Display Assessment & Plan Assessment & Plan (1) Hypertension: Code(s): I10 - Essential (primary) hypertension Category: Medical Qualifiers: Hypertension type: primary hypertension Qualified Code(s): I10 - Essential (primary) hypertension Plan Dori has hypertension confirmed by 24 hour ambulatory blood pressure which showed sub optimally controlled BP which improved on Amlodipine 10 mg daily. She is on Clonidine 0.1 mg at night. Her serum potassium and renal functions had been normal. She needs to lose weight and be on a low-sodium diet. She claimed that she had sleep study. She has no proteinuria, retinopathy, LVH or renal dysfunction. I answered all questions. Follow-up appointment given Medications: Refilled amlodipine 10 mg PO DAILY 90 tabs 4RF Coding Level of Care Code Est Pt Level 4 (94772) Diagnoses Primary hypertension I10 Hypertension type: primary hypertension
[2024-11-08 09:38] VITALS: BP 104/80; PULSE 98; O2SAT 93; BMI 33.0
== END 2024-11-08 09:59 | disposition home or self-care (01) ==
LOC: HO.HKA 09:25
PROVIDERS: PCP Internal Medicine; Visit Provider Internal Medicine Nephrology
DX: I10 Essential (primary) hypertension (principal)
CPT/HCPCS: 99214

== ENCOUNTER → 2024-11-08 09:24 | Outpatient (BNVA) | payer MEDICARE, MEDICAID, SELFPAY | PROVIDERS: PCP Internal Medicine; Visit Provider Internal Medicine Nephrology | DX: I10 Essential (primary) hypertension (principal) | CPT/HCPCS: 99212 ==

== ENCOUNTER 2024-12-09 07:20 | Outpatient (REF) | payer MEDICARE, MEDICAID, SELFPAY ==
[2024-12-09 10:26] LABS: Basophils Absolute Auto 0.1 X10*3/uL (0.0-0.2); Basophils Percent Auto 0.7 % (0-2); Eosinophils Absolute Auto 0.3 X10*3/uL (0.0-0.4); Eosinophils Percent Auto 2.8 % (0-4); Hemoglobin 15.8 g/dl (12.0-16.0); Imm Gran Abs Auto 0.05 X10*3/uL (0.00-0.03); Imm Gran Pct Auto 0.5 % (0.0-0.4); Lymphocytes Absolute Auto 1.8 X10*3/uL (1.2-4.9); Lymphocytes Percent Auto 18.7 % (20-40); MANUAL DIFF FLAG SCAN; Mean Corpuscular HGB Conc 32.9 g/dl (31.0-35.0); Mean Corpuscular Hemoglobin 27.7 pg (27.0-33.0); Mean Corpuscular Volume 84.1 fL (80.0-98.0); Monocytes Absolute Auto 0.7 X10*3/uL (0.1-1.2); Monocytes Percent Auto 7.2 % (2-11); NRBC Pct Auto 0.2 /100WBC (0.0-0.2); Neutrophils Absolute Auto 6.9 x10*3/uL (2.0-8.3); Neutrophils Percent Auto 70.1 % (45-73); PLT CLUMP 1; Red Blood Count 5.71 X10*6/uL (4.20-5.50); Red Cell Distribution Width 13.4 % (11.0-16.0); SCAN SMEAR FLAG 1
[2024-12-09 10:27] LABS: Alanine Aminotransferase 29 U/L (0-31); Anion Gap 15 (12-20); Aspartate Amino Transferase 22 U/L (5-31); Blood Urea Nitrogen 13 mg/dL (9-16); Calcium 9.6 mg/dL (8.4-10.2); Carbon Dioxide 20 mmol/L (22-29); Chloride 108 mmol/L (96-108); Cholesterol 223 mg/dL (<200); Estimated Glomerular Filt Rate > 60; Glucose Fasting 142 mg/dL (60-99); Glucose Random 142 mg/dL (60-115); HDL Cholesterol 39 mg/dL (>40); LDL Cholesterol Calculated 144 mg/dL (<100); Potassium 4.3 mmol/L (3.3-5.1); Sodium 139 mmol/L (135-145); Triglycerides 201 mg/dL (<150)
[2024-12-09 10:44] LABS: Vitamin D 25-OH Total 60.6 ng/mL (>30)
[2024-12-09 11:56] LABS: White Blood Count 9.8 X10*3/uL (4.8-10.8)
[2024-12-09 11:58] LABS: SLIDE REVIEW VERIFIED
[2024-12-10 05:08] LABS: IgA 233 mg/dL (47-310); IgG 850 mg/dL (600-1640); IgM 155 mg/dL (50-300)
[2024-12-12 23:33] LABS: Class Alternaria alternata 0; Class Aspergillus fumigatus 0; Class Bermuda Grass 0; Class Birch 0; Class Cat Dander 0; Class Cladosporium herbarum 0; Class Cockroach 0/1; Class Common Ragweed 0; Class Cottonwood 0; Class Derm. pterony 0/1; Class Dermatophagoides farinae 0/1; Class Dog Dander 0; Class Elm 0; Class Maple Box Elder 0; Class Mountain Cedar 0; Class Mouse Urine Protein 0; Class Mugwort 0; Class Oak 0; Class Penicillium crysogenum 0; Class Rough Pigweed 0; Class Sheep Sorrel 0; Class Sycamore 0; Class Timothy Grass 0; Class Walnut Tree 0; Class White Ash 0; Class White Mulberry 0; D001 IgE D pteronyssinus 0.17 kU/L; D002 - IgE D farinae 0.14 kU/L; E001 - IgE Cat Dander <0.10 kU/L; E005 - IgE Dog Dander <0.10 kU/L; E072-IgE Mouse Urine <0.10 kU/L; G002 IgE Bermuda Grass <0.10 kU/L; G006 - IgE Timothy Grass <0.10 kU/L; I006-IgE Cockroach, German 0.12 kU/L; Immunoglobulin E 74 kU/L (<OR=114); M001 IgE Penicillium chrysogen <0.10 kU/L; M002 - IgE Cladosporium herbar <0.10 kU/L; M003 - IgE Aspergillus fumigat <0.10 kU/L; M006 - IgE Alternaria alternat <0.10 kU/L; T001 IgE Maple/Box Elder <0.10 kU/L; T003 IgE Common Silver Birch <0.10 kU/L; T006 - IgE Cedar, Mountain <0.10 kU/L; T007 - IgE Oak, White <0.10 kU/L; T008 IgE Elm, American <0.10 kU/L; T010 - IgE Walnut <0.10 kU/L; T011 - IgE Maple Leaf Sycamore <0.10 kU/L; T014 - IgE Cottonwood <0.10 kU/L; T015 - IgE Ash, White <0.10 kU/L; T070 - IgE White Mulberry <0.10 kU/L; W001 - IgE Ragweed, Short <0.10 kU/L; W006 - IgE Mugwort <0.10 kU/L; W014 IgE Pigweed, Common <0.10 kU/L; W018 IgE Sheep Sorrel <0.10 kU/L
== END 2024-12-09 07:21 | disposition home or self-care (01) ==
LOC: HO.HMGCLDS 07:20
PROVIDERS: PCP Internal Medicine; Referring Provider Hospitalist; Visit Provider Internal Medicine
DX: J45.41 Moderate persistent asthma with (acute) exacerbation (principal); I10 Essential (primary) hypertension; F31.9 Bipolar disorder, unspecified; Z86.2 Personal history of diseases of the blood and blood-forming organs and certain disorders involving the immune mechanism; T78.40XA Allergy, unspecified, initial encounter; J44.89 Other specified chronic obstructive pulmonary disease; R91.1 Solitary pulmonary nodule
CPT/HCPCS: 36415; 80048; 80061; 82306; 82784; 82785; 84450; 84460; 85025; 86003

== ENCOUNTER 2024-12-13 14:29 | Outpatient (AMB) | payer MEDICARE, MEDICAID, SELFPAY ==
[2024-12-13 14:41] VITALS: BP 100/66; PULSE 96; O2SAT 93; BMI 32.3
--- NOTE | 2024-12-13 14:41 | A.OFFVIS_ITS ---
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 She is presenting worsening respiratory symptoms and multiple urgent care visits. The patient states that she had breathing studies back in 2023. She actually had a methacholine challenge that was positive. And she also had a moderate obstruction. 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 She also had significant eosinophilia and therefore she is a candidate for Dupixent based on her severity of her obstructive airway disease. The patient has been on Dulera. Although she has significant wheezing and chest tightness and uses her rescue inhaler multiple times a day. She does have a nebulizer. On exam she does have significant rhonchi wheezing prolonged expiratory phase so therefore we gave it to DuoNeb treatments. She was having diminished breath sounds. Will go ahead and send her script for prednisone and will start her on Trelegy to see if this provides better relief. She is going to take a nebulizer with her in order to provide bronchodilator therapy as well with the nebulizer. In the meantime she needs to cut down his smoking. She is not interested in the lung cancer screening program at this time. Will have her get blood work including allergy testing and then follow-up in 1 6 weeks. If the patient is where she will have to go to the ER. 10/02/2024 the patient is here for a pulmonary follow-up visit. The patient continues to struggle with her breathing. She feels every time she comes off the prednisone wheezing that is worsening chest congestion gets worse and she does not feel well. She feels like she needs to stay on the prednisone. She has been using the Trelegy inhaler and also has been using her nebulizer therapy. Unfortunately she continues to smoke cigarettes. She has a hard time quitting the addiction. She complains of some pleuritic chest discomfort primarily on the left side. Moderate severity. She not sure if is musculoskeletal or or her lungs. Will have her get a chest x-ray in addition to blood work today. She can start slow prednisone taper and also antibiotics. She also is a good candidate for Daliresp. Will try to get a sputum culture if possible. She was reluctant about the lung cancer screening program in the past. We can reconsider that depending on her results. 12/13/2024 the patient is here for pulmonary follow-up visit. Overall she is doing okay. Unfortunately she is still smoking and she has had a hard time quitting. She did tolerate the Daliresp 250 mcg dose and will go ahead and increase it. She has also been using the Trelegy inhaler. She has a nebulizer but she has not use it as regularly. She does have wheezing on exam and I did recommend she can only use it once a day and also as needed to help her with bronchospasms and wheezing. She also understands that until she quit smoking she is not going to slowly be getting better significantly. I did provide her with the pamphlet for the smoking cessation program here at [place]. She is going to look into it. As far as the lung cancer screening program the patient is reluctant at this time because he is concerned about what they can find potentially. She is willing to consider and will talk about it again when she comes back. Will have her come back in 6 months if he has any issues prior to that she will call for an earlier assessment. [facility] Medical History (Updated 10/04/24 @ 08:50 by Marilyn Swenson PA-C) Chest pain Smoker Asthma-COPD overlap syndrome Asthma, persistent not controlled Smoker unmotivated to quit Hypersomnia COVID-19 vaccine dose declined Pneumococcal vaccination declined Refused influenza vaccine Heavy cigarette smoker (20-39 per day) Bipolar disorder Surgical History Previous section Family History Brother Substance use disorder Brother Substance use disorder Father No problems noted. Mother HTN (hypertension) Social History Household Members: Spouse Housing: Other Housing Other:: mobile home Alcohol intake: never Patient Tobacco Use Status: Current everyday Tobacco user Cigarette Packs Per Day: 0.75 Cigarettes Per Day: 15 e-Cigarette/Vaping Use: Never Used service: No Current occupational status: disabled Cognitive needs: No Hearing needs: No Vision needs: Yes Review of Systems Const Denies chills, Denies fatigue, Denies fever(s), Denies weight gain and Denies weight loss Eyes Denies change in vision ENT Denies dizziness Card Denies chest pain, Denies leg edema, Denies lightheadedness, Denies palpitat ions, Reports dyspnea on exertion, Denies orthopnea and Denies other Resp Reports cough and Reports dyspnea on exertion GI Denies hematochezia and Denies change in stool character Reports no additional complaints Musc Denies abnormal gait, Denies muscle weakness, Denies numbness, Denies radiating pain into limb and Denies tingling Skin/Breast Denies breast pain, Denies breast mass and Denies rash Neuro Denies abnormal gait, Denies dizziness, Denies numbness and Denies tingling Psych Reports no additional complaints Endo Denies fatigue and Denies palpitations Faraz/Lymph Reports no additional complaints Aller/Immun Reports seasonal rhinorrhea Physical Exam Vital Signs: Last Vital Signs Pulse 96 12/13/24 14:41 BP 100/66 12/13/24 14:41 Pulse Ox 93 12/13/24 14:41 Oxygen Delivery Method Room Air 12/13/24 14:41 BMI result Body Mass Index 32.3 Const General: comfortable HEENT Head: Yes normocephalic Neck Neck: Yes supple Chest Chest palpation & inspection: normal inspection of the chest Resp Effort & Inspection: normal respiratory effort and prolonged expiratory phase Auscultation: wheezes and diminished lung sounds Cardio Heart sounds: S1 normal heart sound present and S2 normal heart sound present GI Palpation (GI): Soft to palpation Skin General skin exam: no rashes or lesions noted Extrem General: No cyanosis Assessment & Plan Assessment & Plan (1) Allergies: Code(s): T78.40XA - Allergy, unspecified, initial encounter Category: Medical Qualifiers: Encounter type: initial encounter Qualified Code(s): T78.40XA - Allergy, unspecified, initial encounter (2) Asthma-COPD overlap syndrome: Code(s): J44.89 - Other specified chronic obstructive pulmonary disease Category: Medical (3) Smoker: Code(s): F17.200 - Nicotine dependence, unspecified, uncomplicated Category: Social Hx (4) Chest pain: Code(s): R07.9 - Chest pain, unspecified Category: Medical Qualifiers: Chest pain type: unspecified Qualified Code(s): R07.9 - Chest pain, unspecified Plan continue Trelegy Increase Daliresp 500mcg Nebulizer Duoneb BID Tobacco cessation: will start cutting down Not interested on LDCT program at this time F/U 6 months Medications: New roflumilast (Daliresp) 500 mcg PO DAILY 30 tabs 11RF 30 days Coding Level of Care Code Est Pt Level 4 (23648) Diagnoses Allergy, initial encounter T78.40XA Encounter type: initial encounter Asthma-COPD overlap syndrome J44.89 Smoker F17.200 Chest pain, unspecified type R07.9 Chest pain type: unspecified Time Spent (min) 16
== END 2024-12-13 15:16 | disposition home or self-care (01) ==
LOC: HO.HPS 14:30
PROVIDERS: PCP Internal Medicine; Visit Provider Hospitalist
DX: T78.40XA Allergy, unspecified, initial encounter (principal); J44.89 Other specified chronic obstructive pulmonary disease; F17.200 Nicotine dependence, unspecified, uncomplicated; R07.9 Chest pain, unspecified
CPT/HCPCS: 99214

== ENCOUNTER → 2024-12-13 14:29 | Outpatient (BNVA) | payer MEDICARE, MEDICAID, SELFPAY | PROVIDERS: PCP Internal Medicine; Visit Provider Hospitalist | DX: J44.89 Other specified chronic obstructive pulmonary disease (principal); R07.9 Chest pain, unspecified; T78.40XA Allergy, unspecified, initial encounter; F17.210 Nicotine dependence, cigarettes, uncomplicated; X58.XXXA Exposure to other specified factors, initial encounter | CPT/HCPCS: 99212 ==

== ENCOUNTER 2025-05-21 07:43 | Outpatient (REF) | payer MEDICARE, MEDICAID, SELFPAY ==
[2025-05-21 11:01] LABS: Alanine Aminotransferase 32 U/L (0-31); Anion Gap 12 (12-20); Aspartate Amino Transferase 20 U/L (5-31); Blood Urea Nitrogen 14 mg/dL (9-16); Calcium 9.5 mg/dL (8.4-10.2); Carbon Dioxide 25 mmol/L (22-29); Chloride 108 mmol/L (96-108); Cholesterol 212 mg/dL (<200); Estimated Glomerular Filt Rate > 60; HDL Cholesterol 39 mg/dL (>40); Potassium 4.2 mmol/L (3.3-5.1); Sodium 141 mmol/L (135-145); Triglycerides 222 mg/dL (<150)
== END 2025-05-21 07:44 | disposition home or self-care (01) ==
LOC: HO.HMGCLDS 07:43
PROVIDERS: PCP Internal Medicine; Visit Provider Internal Medicine
DX: I10 Essential (primary) hypertension (principal); E78.5 Hyperlipidemia, unspecified; R73.01 Impaired fasting glucose
CPT/HCPCS: 36415; 80048; 80061; 83036; 84450; 84460

== ENCOUNTER 2025-06-18 08:36 | Outpatient (AMB) | payer MEDICARE, MEDICAID, SELFPAY ==
--- NOTE | 2025-06-18 08:40 | MHC.PC.OV ---
Vital Signs 06/18/25 08:41 Height 5 ft 5 in Weight 192 lb BMI 31.9 BP 104/72 Blood Pressure Location Rt brachial Position Sitting Respiration 17 Pulse 94 Pulse Source Pulse Oximeter Temp 98.3 F Temp Source Oral Pulse Oximetry (%) 93 Oxygen Delivery Method Room Air Intake Visit Reasons: PE Intake Note: Pt is here today for her PE: last mammogram 09/23/24, papsmear 02/03/10 [place] Required: No Allergies amoxicillin Allergy (Severe, Verified 06/22/25 23:58) hives clindamycin Allergy (Mild, Verified 06/22/25 23:58) Rash Medication List - Last Reconciled 06/18/25 by Jennyfer Jurado MD amlodipine 10 mg PO DAILY clonazepam 1 mg PO BID PRN pzdgudrxeou-amwfzgwlw-sciweskp 200-62.5-25 mcg (Trelegy Ellipta) 1 inh inhalation DAILY 30 days inhalational spacing device (BreatheRite MDI Spacer) As directed ipratropium-albuterol 0.5 mg-3 mg(2.5 mg base)/3 mL 3 mL inhalation BID 30 days lamotrigine 200 mg PO DAILY magnesium oxide 400 mg PO DAILY naproxen 500 mg PO BID oxcarbazepine (Trileptal) 600 mg PO DAILY oxcarbazepine mg PO prazosin 2 mg PO BEDTIME roflumilast (Daliresp) 500 mcg PO DAILY 30 days Ventolin HFA 90 mcg/actuation (albuterol sulfate) 2 puffs inhalation Q6H PRN NS Tobacco use date assessed: 06/13/24 Dental Screening Dental Screen Date: 06/18/25 Did you have a dental visit in the last 12 months?: Yes Did you have a dental problem in the last 6 months where you did not have access to dental care?: No Was dental information given to patient?: Patient has dentist HPI PE HPI Details 54-year-old lady with past medical history significant for bipolar disorder currently followed by psychiatry at [facility], has Hypertension currently followed by Dr. Morris, and sees Dr. Rocha for her bronchial asthma, here today for her physical exam. She continues to smoke cigarettes, with no desire to quit at present time. Hypertension stable and controlled on amlodipine and asthma is controlled on Trelegy, and has not needed to use her Ventolin inhaler frequently. She is up-to-date with her screening mammogram, last done September 2024 with benign findings. Goes to [facility] for her routine Pap, with last Pap smear on record done in 2019 with negative findings. The patient has a history of bipolar disorder with psychosis, for which she has been hospitalized in the past, and she is under the care of a psychiatrist, Dr. Hilary Ralph, and a therapist. She currently reports feeling exhausted, experiencing a dull, terrible pressure in her head, and wanting to sleep all the time, symptoms she attributes to a mononucleosis infection at age 14 from which she feels she never recovered. She denies suicidal ideation Her psychiatric medications include an antipsychotic (recently switched from Abilify to Latuda), clonazepam for anxiety (recently increased), and prazosin for nightmares. Recent lab work revealed an A1C of 7.6%, leading to a new diagnosis of diabetes mellitus. Her blood sugar levels have been trending upwards since the beginning of 2023, previously being in the prediabetic range. She reports recent use of prednisone for her COPD. She has a history of hypertension, which is currently better controlled on amlodipine and prazosin. Her LDL cholesterol has improved from 144 to 129 mg/dL but remains above goal. The patient has a history of COPD and smokes one pack of cigarettes per day. Her transportation sales consultant recommended a lung cancer screening, which she has been hesitant to undergo. She also has a history of basal cell carcinoma on her nose, which was treated with Mohs surgery. At age 14, she had venereal warts and is concerned about her cervical cancer risk, though her last Pap smear two years ago was negative. She is due for a colon cancer screening and expressed a preference for the Cologuard test over a colonoscopy; she has no family history of colon cancer. She had a negative mammogram. She receives regular dental cleanings every six months and sees an film projector operator at [facility] Medical History (Updated 06/18/25 @ 09:34 by Jennyfer Jurado MD) Diabetes mellitus with hyperglycemia, without long-term current use of insulin Dyslipidemia Asthma-COPD overlap syndrome Smoker unmotivated to quit Hypersomnia COVID-19 vaccine dose declined Pneumococcal vaccination declined Refused influenza vaccine Heavy cigarette smoker (20-39 per day) Bipolar disorder Surgical History Previous section Family History Brother Substance use disorder Brother Substance use disorder Father No problems noted. Mother HTN (hypertension) Social History Household Members: Spouse Housing: Other Housing Other:: mobile home Alcohol intake: never Patient Tobacco Use Status: Current everyday Tobacco user Cigarette Packs Per Day: 0.75 Cigarettes Per Day: 15 e-Cigarette/Vaping Use: Never Used service: No Current occupational status: disabled Cognitive needs: No Hearing needs: No Vision needs: Yes Questionnaire PHQ-9 Over the last 2 weeks, how often have you been bothered by any of the following problems? 1. Little interest or pleasure in doing things: several days 2. Feeling down, depressed, or hopeless: several days 3. Trouble falling or staying asleep, or sleeping too much: several days 4. Feeling tired or having little energy: several days 5. Poor appetite or overeating: several days 6. Feeling bad about yourself - or that you are a failure or have let yourself or your family down: several days 7. Trouble concentrating on things, such as reading the newspaper or watching television: several days 8. Moving or speaking so slowly that other people could have noticed. Or the opposite - being so fidgety or restless that you have been moving around a lot more than usual: not at all 9. Thoughts that you would be better off or of hurting yourself in some way: not at all Total score: 7 Depression Screening Interpretation: Positive (Currently sees psychiatrist at [facility]) Depression Screening Follow-up: Existing condition, In treatment and Community Mental Health Worker F/U Depression Screening Done: Yes 31215 - PHQ-9 Billing: Yes Source: Developed by Drs. Aj Bruce, Lina Andre, Jethro Chaidez and colleagues, with an educational samia from [employer]. Thrive Questionnaire Date Thrive assessed: 06/11/25 I am a: Patient What is your living situation today?: I have a steady place to live Within the past 12 months, did the food you bought not last and you didn't have the money to get more?: Never true Within the past 12 months, did you worry whether your food would run out before you got money to buy more?: Never true Do you have trouble paying for medicines?: No Do you have trouble getting transportation to medical appointments?: No Do you have trouble paying your heating and electricity bill?: No Do you have trouble taking care of your child, family member or friend?: No Do you have trouble with day-to-day activities such as bathing, preparing meals, shopping, managing finances, etc.?: Yes Are you currently unemployed and looking for a job?: No Are you interested in more education?: No Please select the resources that you would like help with: None Currently or been in a relationship where the following occur: No concerns reported THRIVE Score: 0 AUDIT C Alcohol Use Questionnaire (AUDIT-C) 1. How often do you have a drink containing alcohol?: Monthly or less 2. How many drinks containing alcohol do you have on a typical day when you are drinking?: 1 or 2 3. How often do you have six or more drinks on one occasion?: Never Total Score: 1 Score Reviewed/Action Taken: Yes THOR-7 AMB Questionnaire THOR-7 Date THOR - 7 assessed: 06/18/25 Feeling nervous, anxious, or on edge: 3 = Nearly every day Not being able to stop or control worryin = Nearly every day Worrying too much about different things: 3 = Nearly every day Trouble relaxin = Nearly every day Being so restless that it is hard to sit still: 2 = More than half the days Becoming easily annoyed or irritable: 2 = More than half the days Feeling afraid as if something awful might happen: 3 = Nearly every day Total THOR-7 score (0-4 normal; 5-9 mild; 10-14 moderate; 15-21 severe): 19 Source: Developed by Drs. Aj Bruce, Lina Andre, Jethro Chaidez and colleagues, with an educational samia from [employer]. THOR-7 Assessment Billing THOR-7 Assessment Tool: THOR-7 Assessment 15818 ACT Questionnaire In the past 4 weeks, how much of the time did your asthma keep you from getting as much done at work, school or at home?: Some of the time During the past 4 weeks, how often have you had shortness of breath?: 1-2 times a week During the past 4 weeks, how often did your asthma symptoms wake you up at night or earlier than usual in the morning?: Not at all During the past 4 weeks, how often have you had to use your rescue inhaler or nebulizer medication?: Once a week or less How would you rate your asthma control during the past 4 weeks?: Somewhat controlled Score: 19 Review of Systems Const Reports as per HPI, Denies chills, Denies fatigue and Denies fever(s) Eyes Details: [facility] Denies change in vision ENT Reports no additional complaints Card Denies chest pain, Denies leg edema, Denies lightheadedness, Denies palpitations, Reports dyspnea on exertion, Denies orthopnea and Denies other Resp Reports change in phlegm color, Reports chest congestion, Reports cough and Reports dyspnea on exertion GI Denies abdominal pain, Denies hematochezia, Denies change in bowel habits and Denies change in stool character Reports no additional complaints Musc Denies abnormal gait, Denies muscle weakness, Denies numbness, Denies radiating pain into limb and Denies tingling Skin/Breast Denies breast pain, Denies breast mass and Denies rash Neuro Denies abnormal gait, Denies numbness and Denies tingling Psych Reports no additional complaints Endo Denies fatigue and Denies palpitations Faraz/Lymph Reports no additional complaints Aller/Immun Denies seasonal rhinorrhea Physical exam (Primary Care) Vital Signs: Last Vital Signs Temp 98.3 F 06/18/25 08:41 Pulse 94 06/18/25 08:41 Resp 17 06/18/25 08:41 BP 104/72 06/18/25 08:41 Pulse Ox 93 06/18/25 08:41 Oxygen Delivery Method Room Air 06/18/25 08:41 BMI result Body Mass Index 31.9 Tobacco/Smoking Status: Tobacco use Status Tobacco use date assessed 06/13/24 06/18/25 08:41 Patient Tobacco Use Status Current everyday Tobacco 06/18/25 08:41 e-Cigarette/Vaping Use Never Used 06/18/25 08:41 PHQ-9: PHQ-9 Score PHQ-9: Total score 20 06/18/25 09:11 Depression Screening Interpretation: Positive (Currently sees psychiatrist at [facility]) Depression Screening Follow-up: Existing condition, In treatment and Community Mental Health Worker F/U Thrive Assessment: Date of Thrive Assessment Date Thrive assessed 06/11/25 06/18/25 08:41 Currently or been in a relationship where the following occur: No concerns reported Const General: no acute distress and alert Nutritional Appearance: obese Orientation/consciousness: patient oriented x3 HENMT Ears: external ears normal, TM's normal bilaterally and EAC's normal General nose exam: Normal external nose present and No nasal discharge present Face and sinus: Yes face symmetric Mouth: Normal oral and palatal mucosa present and moist mucous membranes Eyes General: appearance normal, both eyes and all related structures Neck Neck: Yes full ROM, Yes no lymphadenopathy and Yes supple Chest Chest palpation & inspection: normal inspection of the chest Breast/axilla palpation: normal palpation of the breasts Resp Effort & Inspection: normal respiratory effort and able to speak in complete sentences Cardio Rate: regular rate Rhythm: regular rhythm Heart sounds: S1 normal heart sound present and S2 normal heart sound present GI Inspection: Yes obesity Palpation (GI): Soft to palpation, nontender, no guarding and no hernias Auscultation: normal bowel sounds General: Yes no CVA tenderness and Yes deferred (Goes to [facility]) Back/Spine/Pelvis Back: no CVA tenderness and No back tenderness Skin General skin exam: no rashes or lesions noted Neuro General: patient oriented x3, gait normal, moves all extremities, no focal motor deficits and CN's II-XI intact bilaterally Extrem General: Yes normal to inspection, Yes full ROM, Yes no joint enlargement, Yes no clubbing, cyanosis or edema, Yes no calf tenderness and Yes normal gait Psych Appearance: grossly normal and well kempt Mental Status: mental status grossly normal Speech and movement: Normal speech and movement present Affect: normal affect Results Reviewed Results Reviewed: Name: Dori Gonzalez Age/Sex: 54/F : 1970 Unit#: [id number] Attend Dr: Jennyfer Jurado MD Re05/21/25 Status: DEP REF Location: [facility] Disch: SPEC : [id number] GENA: 05/21/25 STATUS: COMP REQ : [id number] RECD: 05/21/[address]: Jennyfer Jruado MD COMP: 05/21/25 ENTERED: 05/21/[address] [facility] [address]: ORDERED: Met Prof Fast, AST, ALT, Lipid Panel Test Result Flag Reference Sodium 141 135-145 mmol/L Potassium 4.2 3.3-5.1 mmol/L CL 108 96-108 mmol/L CO2 25 22-29 mmol/L Gap 12 12-20 BUN 14 9-16 mg/dL Creat 0.71 0.5-1.4 mg/dL eGFR > 60 Chronic Kidney Disease: Estimated GFR < 60 mL/min/1.73m2 Severe Kidney Disease: Estimated GFR < 15 mL/min/1.73m2 FBS 135 H 60-99 mg/dL A fasting glucose of 126 mg/dl or greater on more than one occasion is considered diagnostic of diabetes. CA 9.5 8.4-10.2 mg/dL AST (GOT) 20 5-31 U/L ALT (GPT) 32 H 0-31 U/L Triglyceride 222 H <150 mg/dL Desirable Triglyceride: less than 150 mg/dL Borderline High Triglyceride 150-199 mg/dL High Triglyceride: 200-499 mg/dL Very High Triglyceride: greater than or equal to 5OO mg/dL Cholesterol 212 H <200 mg/dL Desirable Cholesterol: less than 200 mg/dL Borderline High Cholesterol: 200-239 mg/dL High Cholesterol: greater than 239 mg/dL LDL Calculated 129 H <100 mg/dL Desirable LDL: less than 100 mg/dL Near Optimal/Above Optimal LDL: 110-129 mg/dL Borderline High LDL: 130-159 mg/dL High LDL: 160-189 mg/dL Very High LDL: greater than or equal to 190 mg/dL HDL 39 L >40 mg/dL Desirable HDL: greater than 40 mg/dL Note: This HDL assay may give artificially low results in patients with liver disease. Laboratory Tests 05/21/25 07:50 Estimat Average Glucose 171 Hemoglobin A1c % 7.6 H Coding Level of Care Code Est Pt Prev Care 40-64y(46830) Diagnoses Diabetes mellitus with hyperglycemia, without long-term current use of insulin E11.65 Dyslipidemia E78.5 Bipolar affective disorder, remission status unspecified F31.9 Active/Remission status: remission status unspecified Primary hypertension I10 Hypertension type: primary hypertension Asthma-COPD overlap syndrome J44.89 Smoker unmotivated to quit F17.200 Annual visit for general adult medical examination with abnormal findings Z00.01 Additional Codes THOR-7 Assessment Billing - THOR-7 Assessment Tool: THOR-7 Assessment 54300 ([id number]) PHQ-9 - 05791 - PHQ-9 Billing: Yes ([id number]) Assessment & Plan Assessment & Plan (1) Diabetes mellitus with hyperglycemia, without long-term current use of insulin: Code(s): E11.65 - Type 2 diabetes mellitus with hyperglycemia Category: Medical (2) Dyslipidemia: Code(s): E78.5 - Hyperlipidemia, unspecified Category: Medical (3) Bipolar disorder: Code(s): F31.9 - Bipolar disorder, unspecified Category: Medical Qualifiers: Active/Remission status: remission status unspecified Qualified Code(s): F31.9 - Bipolar disorder, unspecified (4) Hypertension: Code(s): I10 - Essential (primary) hypertension Category: Medical Qualifiers: Hypertension type: primary hypertension Qualified Code(s): I10 - Essential (primary) hypertension (5) Asthma-COPD overlap syndrome: Code(s): J44.89 - Other specified chronic obstructive pulmonary disease Category: Medical (6) Smoker unmotivated to quit: Code(s): F17.200 - Nicotine dependence, unspecified, uncomplicated Category: Social Hx (7) Annual visit for general adult medical examination with abnormal findings: Code(s): Z00.01 - Encounter for general adult medical examination with abnormal findings Plan: Results of recent fasting labs reviewed with patient Recommended dental visit every 6 months and yearly eye exams for routine checkup and diabetes screening Take adequate calcium in diet and vitamin-D 3 at 2000 IU per cap once a day, in addition to weight-bearing exercises to help maintain good muscle tone and weight control. Up-to-date with her annual mammogram, Cologuard ordered for colon cancer screening. Records from her last Pap smear will be requested to confirm she is not due until 2024. Recommended starting vitamin D 2000 units daily. A follow-up appointment is scheduled for three months from now, in September, with labs to be done one week prior to appointment. Plan 1. Diabetes Mellitus, Type 2 (New Diagnosis) The patient's recent A1c of 7.6% and fasting glucose of 139 mg/dL confirm a new diagnosis of diabetes, likely exacerbated by recent prednisone use. Started metformin 500 mg twice daily with meals. A prescription for a glucometer and testing supplies will be sent to monitor blood glucose twice daily, with a goal of <130 mg/dL fasting.Recheck labs in three months. Urine microalbuminuria screening ordered Advised the patient to inform her film projector operator for a yearly diabetic eye exam and discuss changing amlodipine to an MABEL inhibitor with her other provider for renal protection. She declined referrals to a nursing attendant. 2. Dyslipidmia The patient's LDL cholesterol is elevated at 129 mg/dL, with a goal of <100 mg/dL. Started on rosuvastatin 5 mg every other day. Labs will be rechecked in three months. [95] 3. Hypertension Blood pressure at goal of less than 130/80. Continue with amlodipine 10 mg daily. Reinforced importance of following a low sodium diet, getting regular exercise, and lowering stress levels. 4. Bipolar Disorder, Chronic Fatigue, and Head Pressure The patient reports ongoing exhaustion, head pressure, and passive ideation despite being managed by a psychiatrist for bipolar disorder. [22, 23, 24] She continues on multiple psychotropic medications prescribed by her specialist. [28, 29] Plan is for the patient to continue her ongoing care with her psychiatrist and therapist for management of these complex symptoms. [22, 24] 5. Tobacco Use Disorder and COPD The patient smokes one pack per day and has a history of COPD.] Examination revealed harsh breath sounds. smoking cessation advised , and reiterating her transportation sales consultant's recommendation for a lung cancer screening CT scan, which she remains hesitant about. Patient strongly advised to stop smoking, as smoking damages blood vessels, degenerative of joints and spine, damage to lungs and heart., predisposes to developing certain cancers like lung, breast, bladder, colon. Recommended to try decreasing cigarette use by 1-2 cigarettes a day. Advised to monitor what triggers are for smoking so that this can be discussed on the next office visit. We can discuss different options to quit smoking when ready. Patient was informed and verbally consented to the use of an ambient scribe for clinic note documentation during this visit. Orders: Orders Microalbumin, Random (w Creat) 06/18/25 E11.65 - Type 2 diabetes mellitus with hyperglycemia Vitamin D 25-OH Total 09/20/25 E11.65 - Type 2 diabetes mellitus with hyperglycemia, E78.5 - Hyperlipidemia, unspecified, F17.200 - Nicotine dependence, unspecified, uncomplicated, F31.9 - Bipolar disorder, unspecified, I10 - Essential (primary) hypertension, J44.89 - Other specified chronic obstructive pulmonary disease, Z00.01 - Encounter for general adult medical examination with abnormal findings, Z28.21 - Immunization not carried out because of patient refusal Lipid Panel 09/20/25 E11.65 - Type 2 diabetes mellitus with hyperglycemia, E78.5 - Hyperlipidemia, unspecified, F17.200 - Nicotine dependence, unspecified, uncomplicated, F31.9 - Bipolar disorder, unspecified, I10 - Essential (primary) hypertension, J44.89 - Other specified chronic obstructive pulmonary disease, Z00.01 - Encounter for general adult medical examination with abnormal findings, Z28.21 - Immunization not carried out because of patient refusal Alanine Aminotransferase 09/20/25 E11.65 - Type 2 diabetes mellitus with hyperglycemia, E78.5 - Hyperlipidemia, unspecified, F17.200 - Nicotine dependence, unspecified, uncomplicated, F31.9 - Bipolar disorder, unspecified, I10 - Essential (primary) hypertension, J44.89 - Other specified chronic obstructive pulmonary disease, Z00.01 - Encounter for general adult medical examination with abnormal findings, Z28.21 - Immunization not carried out because of patient refusal Aspartate Amino Transferase 09/20/25 E11.65 - Type 2 diabetes mellitus with hyperglycemia, E78.5 - Hyperlipidemia, unspecified, F17.200 - Nicotine dependence, unspecified, uncomplicated, F31.9 - Bipolar disorder, unspecified, I10 - Essential (primary) hypertension, J44.89 - Other specified chronic obstructive pulmonary disease, Z00.01 - Encounter for general adult medical examination with abnormal findings, Z28.21 - Immunization not carried out because of patient refusal Basic Metabolic Panel Fasting 09/20/25 E11.65 - Type 2 diabetes mellitus with hyperglycemia, E78.5 - Hyperlipidemia, unspecified, F17.200 - Nicotine dependence, unspecified, uncomplicated, F31.9 - Bipolar disorder, unspecified, I10 - Essential (primary) hypertension, J44.89 - Other specified chronic obstructive pulmonary disease, Z00.01 - Encounter for general adult medical examination with abnormal findings, Z28.21 - Immunization not carried out because of patient refusal Hemoglobin A1c 09/20/25 E11.65 - Type 2 diabetes mellitus with hyperglycemia, E78.5 - Hyperlipidemia, unspecified, F17.200 - Nicotine dependence, unspecified, uncomplicated, F31.9 - Bipolar disorder, unspecified, I10 - Essential (primary) hypertension, J44.89 - Other specified chronic obstructive pulmonary disease, Z00.01 - Encounter for general adult medical examination with abnormal findings, Z28.21 - Immunization not carried out because of patient refusal Referrals Cologuard Test Z12.11 - Encounter for screening for malignant neoplasm of colon, Z12.12 - Encounter for screening for malignant neoplasm of rectum Medications: New rosuvastatin 5 mg PO Q2D 45 tabs 5RF 3 months lancets (FreeStyle Lancets) Check fasting glucose twice a day before meals 100 ea 5RF E11.65 - Type 2 diabetes mellitus with hyperglycemia metformin 500 mg PO BIDWMEAL 60 tabs 5RF E11.65 - Type 2 diabetes mellitus with hyperglycemia blood sugar diagnostic (FreeStyle Lite Strips) Check fasting glucose twice a day before meals 100 ea 5RF E11.65 - Type 2 diabetes mellitus with hyperglycemia blood-glucose meter (FreeStyle Lite Meter kit) As directed 1 ea 0RF E11.65 - Type 2 diabetes mellitus with hyperglycemia
[2025-06-18 08:41] VITALS: BP 104/72; PULSE 94; RESP 17; TEMP 36.8; O2SAT 93; BMI 31.9
== END 2025-06-18 09:32 | disposition home or self-care (01) ==
LOC: HO.HMCC 08:37
PROVIDERS: PCP Internal Medicine; Visit Provider Internal Medicine
DX: Z00.01 Encounter for general adult medical examination with abnormal findings (principal); E11.65 Type 2 diabetes mellitus with hyperglycemia; F31.9 Bipolar disorder, unspecified; J44.89 Other specified chronic obstructive pulmonary disease; E78.5 Hyperlipidemia, unspecified; I10 Essential (primary) hypertension; F17.200 Nicotine dependence, unspecified, uncomplicated

== ENCOUNTER → 2025-06-18 08:36 | Outpatient (BNVA) | payer MEDICARE, MEDICAID, SELFPAY | PROVIDERS: PCP Internal Medicine; Visit Provider Internal Medicine | DX: Z00.01 Encounter for general adult medical examination with abnormal findings (principal); E11.65 Type 2 diabetes mellitus with hyperglycemia; E78.5 Hyperlipidemia, unspecified; I10 Essential (primary) hypertension; J44.89 Other specified chronic obstructive pulmonary disease; F17.200 Nicotine dependence, unspecified, uncomplicated; Z13.31 Encounter for screening for depression; Z13.39 Encounter for screening examination for other mental health and behavioral disorders | CPT/HCPCS: 96127; 99396 ==

== ENCOUNTER 2025-06-19 09:12 | Outpatient (AMB) | payer MEDICARE, MEDICAID, SELFPAY ==
[2025-06-19 09:19] VITALS: BP 110/70; PULSE 100; O2SAT 94; BMI 31.9
--- NOTE | 2025-06-19 09:19 | A.OFFVIS_ITS ---
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 She is presenting worsening respiratory symptoms and multiple urgent care visits. The patient states that she had breathing studies back in 2023. She actually had a methacholine challenge that was positive. And she also had a moderate obstruction. 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 She also had significant eosinophilia and therefore she is a candidate for Dupixent based on her severity of her obstructive airway disease. The patient has been on Dulera. Although she has significant wheezing and chest tightness and uses her rescue inhaler multiple times a day. She does have a nebulizer. On exam she does have significant rhonchi wheezing prolonged expiratory phase so therefore we gave it to DuoNeb treatments. She was having diminished breath sounds. Will go ahead and send her script for prednisone and will start her on Trelegy to see if this provides better relief. She is going to take a nebulizer with her in order to provide bronchodilator therapy as well with the nebulizer. In the meantime she needs to cut down his smoking. She is not interested in the lung cancer screening program at this time. Will have her get blood work including allergy testing and then follow-up in 1 6 weeks. If the patient is where she will have to go to the ER. 10/02/2024 the patient is here for a pulmonary follow-up visit. The patient continues to struggle with her breathing. She feels every time she comes off the prednisone wheezing that is worsening chest congestion gets worse and she does not feel well. She feels like she needs to stay on the prednisone. She has been using the Trelegy inhaler and also has been using her nebulizer therapy. Unfortunately she continues to smoke cigarettes. She has a hard time quitting the addiction. She complains of some pleuritic chest discomfort primarily on the left side. Moderate severity. She not sure if is musculoskeletal or or her lungs. Will have her get a chest x-ray in addition to blood work today. She can start slow prednisone taper and also antibiotics. She also is a good candidate for Daliresp. Will try to get a sputum culture if possible. She was reluctant about the lung cancer screening program in the past. We can reconsider that depending on her results. 12/13/2024 the patient is here for pulmonary follow-up visit. Overall she is doing okay. Unfortunately she is still smoking and she has had a hard time quitting. She did tolerate the Daliresp 250 mcg dose and will go ahead and increase it. She has also been using the Trelegy inhaler. She has a nebulizer but she has not use it as regularly. She does have wheezing on exam and I did recommend she can only use it once a day and also as needed to help her with bronchospasms and wheezing. She also understands that until she quit smoking she is not going to slowly be getting better significantly. I did provide her with the pamphlet for the smoking cessation program here at [facility]. She is going to look into it. As far as the lung cancer screening program the patient is reluctant at this time because he is concerned about what they can find potentially. She is willing to consider and will talk about it again when she comes back. Will have her come back in 6 months if he has any issues prior to that she will call for an earlier assessment. 06/19/2025 the patient is here for pulmonary follow-up visit. Overall the patient has been doing okay although she has tried and fight off a cold. She started developing worsening chest congestion and cough in addition to chest tightness and wheezing. She was recently diagnosed with diabetes so therefore she did not want to start any prednisone. She does have significant wheezing. She does continue to use the Trelegy. She does have a nebulizer but she has not been using it. Therefore, I will give her some doxycycline for her to start and she should start the nebulizer twice a day. If the patient is no better then I gave her a low-dose prednisone that she can start to help her along. In the meantime she needs to quit smoking and also she is going to start participating in the lung cancer screening program with low-dose CAT scans. Will go ahead and put the referral this time. The patient will follow-up in 6 months if she has any issues prior to this she can always call for an earlier assessment and recommendations. [facility] Medical History (Updated 06/18/25 @ 09:34 by Jennyfer Jurado MD) Diabetes mellitus with hyperglycemia, without long-term current use of insulin Dyslipidemia Asthma-COPD overlap syndrome Smoker unmotivated to quit Hypersomnia COVID-19 vaccine dose declined Pneumococcal vaccination declined Refused influenza vaccine Heavy cigarette smoker (20-39 per day) Bipolar disorder Surgical History Previous section Family History Brother Substance use disorder Brother Substance use disorder Father No problems noted. Mother HTN (hypertension) Social History Household Members: Spouse Housing: Other Housing Other:: mobile home Alcohol intake: never Patient Tobacco Use Status: Current everyday Tobacco user Cigarette Packs Per Day: 0.75 Cigarettes Per Day: 15 e-Cigarette/Vaping Use: Never Used service: No Current occupational status: disabled Cognitive needs: No Hearing needs: No Vision needs: Yes Review of Systems Const Denies chills, Denies fatigue, Denies fever(s), Denies weight gain and Denies weight loss Eyes Denies change in vision ENT Denies dizziness Card Denies chest pain, Denies leg edema, Denies lightheadedness, Denies palpitations, Reports dyspnea on exertion, Denies orthopnea and Denies other Resp Reports change in phlegm color, Reports chest congestion, Reports cough, Reports dyspnea on exertion and Reports wheezing GI Denies hematochezia and Denies change in stool character Reports no additional complaints Musc Denies abnormal gait, Denies muscle weakness, Denies numbness, Denies radiating pain into limb and Denies tingling Skin/Breast Denies breast pain, Denies breast mass and Denies rash Neuro Denies abnormal gait, Denies dizziness, Denies numbness and Denies tingling Psych Reports no additional complaints Endo Denies fatigue and Denies palpitations Faraz/Lymph Reports no additional complaints Aller/Immun Reports seasonal rhinorrhea and Reports wheezing Physical Exam Vital Signs: Last Vital Signs Pulse 100 11/06/25 09:19 BP 110/70 06/19/25 09:19 Pulse Ox 94 06/19/25 09:19 Oxygen Delivery Method Room Air 06/19/25 09:19 BMI result Body Mass Index 31.9 Const General: comfortable HEENT Head: Yes normocephalic Neck Neck: Yes supple Chest Chest palpation & inspection: normal inspection of the chest Resp Effort & Inspection: normal respiratory effort and prolonged expiratory phase Auscultation: rhonchi, wheezes and diminished lung sounds Cardio Heart sounds: S1 normal heart sound present and S2 normal heart sound present GI Palpation (GI): Soft to palpation Skin General skin exam: no rashes or lesions noted Extrem General: No cyanosis Assessment & Plan Assessment & Plan (1) Allergies: Code(s): T78.40XA - Allergy, unspecified, initial encounter Category: Medical Qualifiers: Encounter type: initial encounter Qualified Code(s): T78.40XA - Allergy, unspecified, initial encounter (2) Asthma-COPD overlap syndrome: Code(s): J44.89 - Other specified chronic obstructive pulmonary disease Category: Medical (3) Smoker: Code(s): F17.200 - Nicotine dependence, unspecified, uncomplicated Category: Social Hx (4) Chest pain: Code(s): R07.9 - Chest pain, unspecified Category: Medical Qualifiers: Chest pain type: unspecified Qualified Code(s): R07.9 - Chest pain, unspecified (5) Smoker unmotivated to quit: Code(s): F17.200 - Nicotine dependence, unspecified, uncomplicated Category: Social Hx Plan continue Trelegy Daliresp 500mcg Nebulizer Duoneb BID Start Doxycycline low dose prednisone taper if no better Tobacco cessation: will start cutting down LDCT program referral F/U 6 months Orders: Referrals Lung Cancer Screening Referral F17.200 - Nicotine dependence, unspecified, uncomplicated Medications: New prednisone PO daily; Take 2 tabs daily x 5 days, then 1 tab daily x 5 days 18 days 63 tabs 0RF albuterol sulfate 90 mcg/actuation 2 inhalations inhalation Q6H PRN 18 grams 12RF shortness of breath or wheezing 30 days J44.9 - Chronic obstructive pulmonary disease, unspecified doxycycline hyclate 100 mg PO BID 20 caps 0RF 10 days Refilled ipratropium-albuterol 0.5 mg-3 mg(2.5 mg base)/3 mL 3 mL inhalation BID 180 mL 11RF 30 days J44.9 - Chronic obstructive pulmonary disease, unspecified Coding Level of Care Code Est Pt Level 4 (75374) Complex EM visit Add On G2211 Diagnoses Allergy, initial encounter T78.40XA Encounter type: initial encounter Asthma-COPD overlap syndrome J44.89 Smoker F17.200 Chest pain, unspecified type R07.9 Chest pain type: unspecified Smoker unmotivated to quit F17.200 Time Spent (min) 16
== END 2025-06-19 09:58 | disposition home or self-care (01) ==
LOC: HO.HPS 09:13
PROVIDERS: PCP Internal Medicine; Visit Provider Hospitalist
DX: T78.40XA Allergy, unspecified, initial encounter (principal); J44.89 Other specified chronic obstructive pulmonary disease; F17.200 Nicotine dependence, unspecified, uncomplicated; R07.9 Chest pain, unspecified
CPT/HCPCS: 99214; G2211

== ENCOUNTER → 2025-06-19 09:12 | Outpatient (BNVA) | payer MEDICARE, MEDICAID, SELFPAY | PROVIDERS: PCP Internal Medicine; Visit Provider Hospitalist | DX: J44.89 Other specified chronic obstructive pulmonary disease (principal); T78.40XA Allergy, unspecified, initial encounter; F17.210 Nicotine dependence, cigarettes, uncomplicated; R07.89 Other chest pain; R06.2 Wheezing | CPT/HCPCS: 99212 ==

== ENCOUNTER → 2025-08-13 19:36 | Outpatient (BNV) | payer MEDICARE, MEDICAID, SELFPAY | PROVIDERS: Admitting Provider Family Medicine; Emergency Provider Student in an Organized Health Care Education/Training Program; PCP Internal Medicine; Visit Provider Internal Medicine | DX: R00.0 Tachycardia, unspecified (principal) | CPT/HCPCS: 93010 ==